=== PATIENT | male | born 1975 | race Two or more races ===

== ENCOUNTER 2020-01-24 15:37 | Inpatient (IN) | payer MEDICAID, OTHER ==
[~2020-01-24] VITALS: Ht 182.9 cm; Wt 96.5 kg
--- NOTE | 2020-01-24 16:23 | NUR ---
JESSICA. REPORT RECEIVED FROM EMS. PT WAS TRANSFFERED FROM [facility] IN [place]. PT HAD ABOUT 3CM LAC ON LEFT GROIN AREA 4 DAYS AGO. IT IS INFECTED. C/O LEFT TESTICLE PAIN/SWELLING/PUS FROM LAC. PT'S SKIN COLOR ON LEFT SIDED GROIN AND TESTICLE ARE BLACKISH AND UNPLEASANT ODOR FROM LAC. PT'S AOX4. RESPS EVEN AND UNLABORED. BP/SPO2 MONITORS IN PLACE. CALL LIGHT WITHIN REACH.
[2020-01-24] MEDS ORDERED: SODIUM CHLORIDE 0.9% 1,000 ML IV ONE (16:30)
[2020-01-24] MEDS ORDERED: SODIUM CHLORIDE FLUSH 10ML SYR IVF ONE (16:30)
--- NOTE | 2020-01-24 16:50 | NUR ---
PT IN CT AT THIS TIME.
[2020-01-24 16:59] LABS: MEAN CORPUSCULAR HEMOGLOBIN 30.7 pg (27.5-34.5); MEAN CORPUSCULAR HGB CONC 33.8 g/dL (33.2-36.2); MEAN CORPUSCULAR VOLUME 90.8 fL (81-97); MEAN PLATELET VOLUME 12.1 fL (7.4-10.4); PLATELET COUNT 289 x10^3/uL (130-400); RED BLOOD COUNT 4.66 x10^6/uL (4.38-5.82); RED CELL DISTRIBUTION WIDTH 13.4 % (9.4-14.8)
[2020-01-24 17:09] LABS: ALBUMIN 1.9 g/dL (3.4-5.0); ANION GAP 9 mmol/L (5-15); CALCIUM 8.4 mg/dL (8.5-10.1); CHLORIDE 94 mmol/L (98-107); CREATININE 1.03 mg/dL (0.7-1.3)
[2020-01-24 17:10] LABS: MD YES
[2020-01-24] MEDS ORDERED: OMNIPAQUE 350 MG/ML, 100ML BOTTLE ONE (17:15)
[2020-01-24] MEDS ORDERED: POTASSIUM CHLORIDE 40 MEQ in SODIUM CHLORIDE 0.9% 500 ML IV ONE (17:30)
--- NOTE | 2020-01-24 17:52 | NUR ---
PT BACK TO ROOM FROM CT AT THIS TIME.
--- NOTE | 2020-01-24 17:55 | NUR ---
NS INFUSING AT THIS TIME. PT TOLERATED WELL.
[2020-01-24] MEDS ORDERED: SODIUM CHLORIDE 0.9% 1,000ML IVBOLUS ONE (18:00)
[2020-01-24 18:07] LABS: BAND#(MANUAL) 5.69 x10^3/uL; BANDS%(MANUAL) 21 % (0-7); LYMPH#(MANUAL) 2.71 x10^3/uL (1-3.4); LYMPHS% (MANUAL) 10 % (22-44); METAMYELOCYTES# (MANUAL) 0.27 x10^3/uL (0-0); METAMYELOCYTES% (MANUAL) 1 % (0-1); MONOS#(MANUAL) 0.54 x10^3/uL (0.3-2.7); MONOS% (MANUAL) 2 % (2-9); MYELOCYTES# (MANUAL) 0.54 x10^3/uL (0-0); MYELOCYTES% (MANUAL) 2 % (0-0); REACTIVE LYMPHS # (MANUAL) 0.27 x10^3/uL (0-0); REACTIVE LYMPHS % (MANUAL) 1 % (0-0); SEG#(MANUAL) 17.07 x10^3/uL (1.8-6.8); SEGS% (MANUAL) 63 % (42-75)
[2020-01-24 18:11] LABS: <PLATELET ESTIMATE> ADEQUATE; <RBC MORPHOLOGY> NORMAL; LARGE PLATELETS 1+
[2020-01-24] MEDS ORDERED: ONDANSETRON 2MG/ML, 2ML IVPush PRN (18:30)
[2020-01-24] MEDS: NICOTINE 14MG/24 HR PATCH.TD24 TD SCH (18:30)
[2020-01-24] MEDS ORDERED: VANCOMYCIN PER PHARMACY MC PRN (18:30)
[2020-01-24] MEDS ORDERED: NS + 20MEQ KCL 1,000 ML IV SCH (18:30)
[2020-01-24] MEDS ORDERED: BISACODYL 10 MG SUPP PR PRN (18:30)
[2020-01-24] MEDS ORDERED: ACETAMINOPHEN 325 MG TABLET PO PRN ×2 (18:30→22:30)
--- NOTE | 2020-01-24 18:43 | NUR ---
REPORT GIVEN TO GUEST SERVICE REPRESENTATIVE. ALL QUESTIONS ANSWERED.
[2020-01-24] MEDS ORDERED: FENTANYL PF 250 MCG/5ML ONE ×3 (18:46→20:13)
[2020-01-24 18:57] LABS: HCT (SEDRATE) 42.3 % (39.2-51.8)
[2020-01-24 18:59] LABS: INTERNATIONAL NORMALIZED RATIO 0.99 (0.93-1.1); PROTHROMBIN TIME 10.5 Seconds (9.6-11.5)
[2020-01-24] MEDS ORDERED: MEPERIDINE/PF 25MG/ML,1ML IVPush PRN (19:00)
[2020-01-24] MEDS ORDERED: OXYcodone 5 MG/5 ML ORAL.SOL UDC PO PRN (19:00)
[2020-01-24] MEDS ORDERED: HALOPERIDOL 5 MG/ML IV PRN (19:00)
[2020-01-24] MEDS ORDERED: FENTANYL PF 100 MCG/2ML IV PRN (19:00)
[2020-01-24] MEDS ORDERED: LABETALOL 5MG/ML, 20ML IV PRN (19:00)
[2020-01-24] MEDS ORDERED: hydrALAzine 20 MG/ML, 1ML IV PRN (19:00)
[2020-01-24] MEDS ORDERED: HYDROmorphone 2 MG/ML, 1ML IVPush PRN (19:00)
[2020-01-24] MEDS ORDERED: PROMETHAZINE 25 MG/ML, 1ML IV PRN (19:00)
[2020-01-24] MEDS ORDERED: GLYCOPYRROLATE 0.2MG/1ML, 5ML ONE (20:40)
[2020-01-24] MEDS ORDERED: SUCCINYLCHOLINE 20 MG/ML, 10ML ONE (20:40)
[2020-01-24] MEDS ORDERED: NEOSTIGMINE 1 MG/ML, 10ML ONE (20:40)
[2020-01-24] MEDS ORDERED: CEFAZOLIN 1,000 MG ONE (20:40)
[2020-01-24] MEDS ORDERED: DEXAMETHASONE 4 MG/ML, 1ML ONE (20:40)
[2020-01-24] MEDS ORDERED: PROPOFOL 10 MG/ML, 20ML ONE (20:40)
[2020-01-24] MEDS ORDERED: ONDANSETRON 2MG/ML, 2ML ONE (20:40)
[2020-01-24] MEDS ORDERED: ROCURONIUM 10MG/ML,5ML ONE (20:40)
[2020-01-24] MEDS ORDERED: OXYcodone 5 MG/5 ML ORAL.SOL UDC ONE (21:24)
[2020-01-24] MEDS: FAMOTIDINE 20 MG/2 ML IVPush SCH (22:28)
[2020-01-24] MEDS: INSULIN LISPRO 100 UNITS/ML, PEN SQ-INSULIN SCH (22:28)
[2020-01-24] MEDS: HEPARIN 5,000 UNITS/ML, 1ML SQ SCH (22:29)
[2020-01-24] MEDS ORDERED: POTASSIUM CHLORIDE 20 MEQ in D5%-0.45% NACL 1,000 ML IV SCH (22:30)
[2020-01-24] MEDS ORDERED: PHARMACOKINETIC MONITORING MC PRN (22:30)
[2020-01-24] MEDS ORDERED: OXYcodone IR 5MG TABLET PO PRN (22:30)
[2020-01-24] MEDS ORDERED: HYDROmorphone 2 MG/ML, 1ML IV PRN (22:30)
[2020-01-24] MEDS ORDERED: PHARMACOKINETIC CONSULTATION MC ONE (22:30)
[2020-01-24] MEDS ORDERED: ENOXAPARIN 40 MG/0.4 ML SQ SCH (22:30)
[2020-01-24] MEDS: MEROPENEM 1 GM in SODIUM CHLORIDE 0.9% 100 ML IV SCH (22:39)
[2020-01-24] MEDS: CLINDAMYCIN PMX 600MG/50ML 50 ML IV SCH (22:39)
[2020-01-24 23:51] VITALS: BP 145/71
[2020-01-25] VITALS: BP 145/71
[2020-01-25] MEDS: VANCOMYCIN 1,800 MG in SODIUM CHLORIDE 0.9% 250 ML IV SCH ×3 (00:34→23:21)
[2020-01-25] MEDS: OXYcodone IR 5MG TABLET PO PRN (01:32)
[2020-01-25] MEDS ORDERED: PROMETHAZINE 25 MG/ML, 1ML IM PRN (02:00)
[2020-01-25 03:08] LABS: MICROSCOPIC INDICATED
[2020-01-25 04:59] LABS: MEAN CORPUSCULAR HEMOGLOBIN 31.2 pg (27.5-34.5); MEAN CORPUSCULAR HGB CONC 34.4 g/dL (33.2-36.2); MEAN CORPUSCULAR VOLUME 90.7 fL (81-97); MEAN PLATELET VOLUME 11.6 fL (7.4-10.4); PLATELET COUNT 272 x10^3/uL (130-400); RED BLOOD COUNT 4.09 x10^6/uL (4.38-5.82); RED CELL DISTRIBUTION WIDTH 13.7 % (9.4-14.8)
[2020-01-25 05:03] LABS: CHLORIDE 104 mmol/L (98-107)
[2020-01-25 05:11] LABS: ALANINE AMINOTRANSFERASE 17 U/L (12-78); ALBUMIN 1.6 g/dL (3.4-5.0); ALKALINE PHOSPHATASE 148 U/L (45-117); ANION GAP 8 mmol/L (5-15); BILIRUBIN,TOTAL 0.7 mg/dL (0.2-1.0); CALCIUM 7.6 mg/dL (8.5-10.1); CREATININE 0.77 mg/dL (0.7-1.3); TOTAL PROTEIN 6.9 g/dL (6.4-8.2)
[2020-01-25 05:35] LABS: MD YES
[2020-01-25] MEDS: NS + 20MEQ KCL 1,000 ML IV SCH ×3 (05:35→21:00)
[2020-01-25 05:37] LABS: <RBC MORPHOLOGY> NORMAL; BAND#(MANUAL) 2.86 x10^3/uL; BANDS%(MANUAL) 11 % (0-7); EOS#(MANUAL) 0.26 x10^3/uL (0.0-0.4); EOS% (MANUAL) 1 % (1-7); LYMPH#(MANUAL) 3.12 x10^3/uL (1-3.4); LYMPHS% (MANUAL) 12 % (22-44); METAMYELOCYTES# (MANUAL) 0.52 x10^3/uL (0-0); METAMYELOCYTES% (MANUAL) 2 % (0-1); MONOS#(MANUAL) 0.26 x10^3/uL (0.3-2.7); MONOS% (MANUAL) 1 % (2-9); MYELOCYTES# (MANUAL) 0.52 x10^3/uL (0-0); MYELOCYTES% (MANUAL) 2 % (0-0); SEG#(MANUAL) 18.46 x10^3/uL (1.8-6.8); SEGS% (MANUAL) 71 % (42-75)
[2020-01-25 05:38] LABS: <PLATELET ESTIMATE> ADEQUATE; LARGE PLATELETS 1+; TOXIC GRAN 1+
[2020-01-25] MEDS: MEROPENEM 1 GM in SODIUM CHLORIDE 0.9% 100 ML IV SCH ×3 (06:18→21:00)
[2020-01-25] MEDS: CLINDAMYCIN PMX 600MG/50ML 50 ML IV SCH ×3 (06:19→22:01)
[2020-01-25] MEDS: INSULIN LISPRO 100 UNITS/ML, PEN SQ-INSULIN SCH ×4 (06:22→21:00)
[2020-01-25] MEDS: HEPARIN 5,000 UNITS/ML, 1ML SQ SCH ×3 (07:19→22:30)
[2020-01-25] MEDS: DAKIN'S SOLUTION 1/4 STRENGTH 1,000 ML IRRIG SOLN EXT SCH (09:00)
[2020-01-25] MEDS: ACETAMINOPHEN 325 MG TABLET PO SCH ×3 (09:01→19:25)
[2020-01-25] MEDS: FAMOTIDINE 20 MG/2 ML IVPush SCH ×2 (09:01→20:59)
[2020-01-25] MEDS ORDERED: MIDAZOLAM 1 MG/ML, 2ML ONE (15:20)
[2020-01-25] MEDS ORDERED: FENTANYL PF 250 MCG/5ML ONE ×2 (15:20→16:23)
[2020-01-25] MEDS ORDERED: ONDANSETRON 2MG/ML, 2ML IV PRN (15:30)
[2020-01-25] MEDS ORDERED: LABETALOL 5MG/ML, 20ML IV PRN (15:30)
[2020-01-25] MEDS ORDERED: OXYcodone 5 MG/5 ML ORAL.SOL UDC PO PRN (15:30)
[2020-01-25] MEDS ORDERED: FENTANYL PF 100 MCG/2ML IV PRN (15:30)
[2020-01-25] MEDS ORDERED: HYDROmorphone 2 MG/ML, 1ML IVPush PRN (15:30)
[2020-01-25] MEDS ORDERED: MORPHINE SULFATE 4 MG/ML, 1ML IVPush PRN (15:30)
[2020-01-25] MEDS ORDERED: MEPERIDINE/PF 25MG/ML,1ML IVPush PRN (15:30)
[2020-01-25] MEDS ORDERED: hydrALAzine 20 MG/ML, 1ML IV PRN (15:30)
[2020-01-25] MEDS ORDERED: ROCURONIUM 10MG/ML,5ML ONE (16:23)
[2020-01-25] MEDS ORDERED: CEFAZOLIN 1,000 MG ONE (16:23)
[2020-01-25] MEDS ORDERED: NEOSTIGMINE 1 MG/ML, 10ML ONE (16:23)
[2020-01-25] MEDS ORDERED: PROPOFOL 10 MG/ML, 20ML ONE (16:23)
[2020-01-25] MEDS ORDERED: GLYCOPYRROLATE 0.2MG/1ML, 5ML ONE (16:23)
[2020-01-25] MEDS ORDERED: OXYcodone 5 MG/5 ML ORAL.SOL UDC ONE (17:16)
[2020-01-25] MEDS: NICOTINE 14MG/24 HR PATCH.TD24 TD SCH (18:30)
[2020-01-26] MEDS: ACETAMINOPHEN 325 MG TABLET PO SCH ×5 (02:19→23:56)
[2020-01-26 05:21] LABS: MEAN CORPUSCULAR HEMOGLOBIN 30.7 pg (27.5-34.5); MEAN CORPUSCULAR HGB CONC 33.7 g/dL (33.2-36.2); MEAN CORPUSCULAR VOLUME 91.3 fL (81-97); MEAN PLATELET VOLUME 12.1 fL (7.4-10.4); PLATELET COUNT 213 x10^3/uL (130-400); RED CELL DISTRIBUTION WIDTH 14.1 % (9.4-14.8)
[2020-01-26 05:36] LABS: CHLORIDE 103 mmol/L (98-107)
[2020-01-26 05:47] LABS: ALANINE AMINOTRANSFERASE 12 U/L (12-78); ALBUMIN 1.2 g/dL (3.4-5.0); ALKALINE PHOSPHATASE 110 U/L (45-117); ANION GAP 7 mmol/L (5-15); BILIRUBIN,TOTAL 0.7 mg/dL (0.2-1.0); CALCIUM 7.5 mg/dL (8.5-10.1); CREATININE 0.56 mg/dL (0.7-1.3); TOTAL PROTEIN 6.3 g/dL (6.4-8.2)
[2020-01-26 05:53] LABS: MD YES
[2020-01-26 05:59] LABS: <PLATELET ESTIMATE> ADEQUATE; <RBC MORPHOLOGY> NORMAL; BAND#(MANUAL) 0.23 x10^3/uL; BANDS%(MANUAL) 1 % (0-7); EOS#(MANUAL) 0.46 x10^3/uL (0.0-0.4); EOS% (MANUAL) 2 % (1-7); LYMPH#(MANUAL) 1.38 x10^3/uL (1-3.4); LYMPHS% (MANUAL) 6 % (22-44); METAMYELOCYTES# (MANUAL) 0.23 x10^3/uL (0-0); METAMYELOCYTES% (MANUAL) 1 % (0-1); MONOS#(MANUAL) 1.61 x10^3/uL (0.3-2.7); MONOS% (MANUAL) 7 % (2-9); MYELOCYTES# (MANUAL) 0.23 x10^3/uL (0-0); MYELOCYTES% (MANUAL) 1 % (0-0); SEG#(MANUAL) 18.86 x10^3/uL (1.8-6.8); SEGS% (MANUAL) 82 % (42-75); TOXIC GRAN 1+
[2020-01-26 06:00] LABS: LARGE PLATELETS 1+
[2020-01-26] MEDS: MEROPENEM 1 GM in SODIUM CHLORIDE 0.9% 100 ML IV SCH ×3 (06:30→22:27)
[2020-01-26] MEDS: HEPARIN 5,000 UNITS/ML, 1ML SQ SCH ×4 (06:30→23:57)
[2020-01-26] MEDS: INSULIN LISPRO 100 UNITS/ML, PEN SQ-INSULIN SCH ×4 (07:46→20:48)
[2020-01-26] MEDS: NS + 20MEQ KCL 1,000 ML IV SCH (07:46)
[2020-01-26] MEDS: FAMOTIDINE 20 MG/2 ML IVPush SCH ×2 (07:56→20:44)
[2020-01-26] MEDS: CLINDAMYCIN PMX 600MG/50ML 50 ML IV SCH (07:59)
[2020-01-26] MEDS: VANCOMYCIN 1,800 MG in SODIUM CHLORIDE 0.9% 250 ML IV SCH ×2 (12:00→23:44)
[2020-01-26] MEDS: DAKIN'S SOLUTION 1/4 STRENGTH 1,000 ML IRRIG SOLN EXT SCH (13:37)
[2020-01-26] MEDS ORDERED: POTASSIUM CHLORIDE 20 MEQ TAB.ER.PRT PO ONE (16:30)
[2020-01-26] MEDS: NICOTINE 14MG/24 HR PATCH.TD24 TD SCH (17:55)
[2020-01-26 19:53] VITALS: BP 122/74
[2020-01-26] MEDS: LACTOBACILLUS CHEW TABLET PO SCH (20:44)
[2020-01-27 02:06] VITALS: BP 116/69
[2020-01-27] MEDS: MEROPENEM 1 GM in SODIUM CHLORIDE 0.9% 100 ML IV SCH ×3 (06:18→22:27)
[2020-01-27] MEDS ORDERED: FENTANYL PF 250 MCG/5ML ONE ×3 (06:46→08:33)
[2020-01-27] MEDS ORDERED: MIDAZOLAM 1 MG/ML, 2ML ONE (06:47)
[2020-01-27 06:57] LABS: MEAN CORPUSCULAR HEMOGLOBIN 30.9 pg (27.5-34.5); MEAN CORPUSCULAR HGB CONC 33.9 g/dL (33.2-36.2); MEAN CORPUSCULAR VOLUME 91.3 fL (81-97); MEAN PLATELET VOLUME 11.1 fL (7.4-10.4); PLATELET COUNT 304 x10^3/uL (130-400); RED BLOOD COUNT 3.83 x10^6/uL (4.38-5.82); RED CELL DISTRIBUTION WIDTH 13.8 % (9.4-14.8)
[2020-01-27] MEDS ORDERED: MEPERIDINE/PF 25MG/ML,1ML IVPush PRN (07:00)
[2020-01-27] MEDS ORDERED: PROMETHAZINE 25 MG/ML, 1ML IV PRN (07:00)
[2020-01-27] MEDS: INSULIN LISPRO 100 UNITS/ML, PEN SQ-INSULIN SCH ×4 (07:00→20:53)
[2020-01-27] MEDS ORDERED: OXYcodone 5 MG/5 ML ORAL.SOL UDC PO PRN (07:00)
[2020-01-27] MEDS ORDERED: FENTANYL PF 100 MCG/2ML IV PRN (07:00)
[2020-01-27] MEDS ORDERED: hydrALAzine 20 MG/ML, 1ML IV PRN (07:00)
[2020-01-27] MEDS ORDERED: HALOPERIDOL 5 MG/ML IV PRN (07:00)
[2020-01-27] MEDS ORDERED: HYDROmorphone 2 MG/ML, 1ML IVPush PRN (07:00)
[2020-01-27] MEDS ORDERED: LABETALOL 5MG/ML, 20ML IV PRN (07:00)
[2020-01-27 07:06] LABS: ALANINE AMINOTRANSFERASE 11 U/L (12-78); ALBUMIN 1.1 g/dL (3.4-5.0); ANION GAP 8 mmol/L (5-15); CALCIUM 7.5 mg/dL (8.5-10.1); CHLORIDE 102 mmol/L (98-107); CREATININE 0.57 mg/dL (0.7-1.3)
[2020-01-27 07:08] LABS: ALKALINE PHOSPHATASE 111 U/L (45-117); BILIRUBIN,TOTAL 0.5 mg/dL (0.2-1.0); TOTAL PROTEIN 6.7 g/dL (6.4-8.2)
[2020-01-27] MEDS ORDERED: BUPIVACAINE/PF 0.5% ONE (07:53)
[2020-01-27] MEDS ORDERED: EPINEPHRINE 1 MG/ML, 1ML ONE (07:53)
[2020-01-27] MEDS: ACETAMINOPHEN 325 MG TABLET PO SCH ×3 (08:00→20:14)
[2020-01-27 08:37] LABS: MD YES
[2020-01-27 08:39] LABS: BAND#(MANUAL) 2.19 x10^3/uL; BANDS%(MANUAL) 10 % (0-7); LYMPH#(MANUAL) 1.31 x10^3/uL (1-3.4); LYMPHS% (MANUAL) 6 % (22-44); MONOS#(MANUAL) 0.66 x10^3/uL (0.3-2.7); MONOS% (MANUAL) 3 % (2-9); SEG#(MANUAL) 17.74 x10^3/uL (1.8-6.8); SEGS% (MANUAL) 81 % (42-75)
[2020-01-27 08:40] LABS: <PLATELET ESTIMATE> ADEQUATE; <RBC MORPHOLOGY> NORMAL; LARGE PLATELETS 1+; TOXIC GRAN 1+
[2020-01-27] MEDS ORDERED: SUCCINYLCHOLINE 20 MG/ML, 10ML ONE (08:48)
[2020-01-27] MEDS ORDERED: DEXAMETHASONE 4 MG/ML, 1ML ONE (08:48)
[2020-01-27] MEDS ORDERED: CEFAZOLIN 1,000 MG ONE (08:48)
[2020-01-27] MEDS ORDERED: ROCURONIUM 10MG/ML,5ML ONE (08:48)
[2020-01-27] MEDS ORDERED: NEOSTIGMINE 1 MG/ML, 10ML ONE (08:48)
[2020-01-27] MEDS ORDERED: PROPOFOL 10 MG/ML, 20ML ONE (08:48)
[2020-01-27] MEDS ORDERED: GLYCOPYRROLATE 0.2MG/1ML, 5ML ONE (08:48)
[2020-01-27] MEDS ORDERED: ONDANSETRON 2MG/ML, 2ML ONE (08:48)
[2020-01-27] MEDS: DAKIN'S SOLUTION 1/4 STRENGTH 1,000 ML IRRIG SOLN EXT SCH (09:00)
[2020-01-27] MEDS: LACTOBACILLUS CHEW TABLET PO SCH ×3 (10:49→20:52)
[2020-01-27] MEDS: FAMOTIDINE 20 MG/2 ML IVPush SCH ×2 (10:49→20:53)
[2020-01-27] MEDS: VANCOMYCIN 2,000 MG in SODIUM CHLORIDE 0.9% 500 ML IV SCH ×2 (11:03→23:09)
[2020-01-27 13:22] VITALS: BP 143/72
[2020-01-27] MEDS: HEPARIN 5,000 UNITS/ML, 1ML SQ SCH ×2 (14:37→22:28)
[2020-01-27] MEDS: NICOTINE 14MG/24 HR PATCH.TD24 TD SCH (16:16)
[2020-01-27 19:19] VITALS: BP 135/67
[2020-01-27] MEDS: OXYcodone IR 5MG TABLET PO PRN (21:52)
[2020-01-28 00:07] VITALS: BP 113/70
[2020-01-28 00:36] VITALS: BP 137/73
[2020-01-28] MEDS: ACETAMINOPHEN 325 MG TABLET PO SCH ×4 (02:13→20:08)
[2020-01-28 04:51] LABS: MEAN CORPUSCULAR HEMOGLOBIN 30.6 pg (27.5-34.5); MEAN CORPUSCULAR HGB CONC 33.7 g/dL (33.2-36.2); MEAN CORPUSCULAR VOLUME 90.7 fL (81-97); MEAN PLATELET VOLUME 10.9 fL (7.4-10.4); PLATELET COUNT 338 x10^3/uL (130-400); RED BLOOD COUNT 3.65 x10^6/uL (4.38-5.82); RED CELL DISTRIBUTION WIDTH 13.7 % (9.4-14.8)
[2020-01-28 04:54] VITALS: BP 132/77
[2020-01-28 05:01] LABS: ANION GAP 7 mmol/L (5-15); CALCIUM 7.2 mg/dL (8.5-10.1); CHLORIDE 100 mmol/L (98-107); CREATININE 0.63 mg/dL (0.7-1.3)
[2020-01-28 05:06] LABS: MD YES
[2020-01-28 05:07] LABS: ANISOCYTOSIS 1+; BAND#(MANUAL) 1.06 x10^3/uL; BANDS%(MANUAL) 5 % (0-7); LYMPHS% (MANUAL) 8 % (22-44); METAMYELOCYTES# (MANUAL) 0.21 x10^3/uL (0-0); METAMYELOCYTES% (MANUAL) 1 % (0-1); MONOS#(MANUAL) 0.64 x10^3/uL (0.3-2.7); MONOS% (MANUAL) 3 % (2-9); SEGS% (MANUAL) 83 % (42-75); TOXIC GRAN 1+
[2020-01-28 05:08] LABS: <PLATELET ESTIMATE> ADEQUATE; LARGE PLATELETS 1+
[2020-01-28] MEDS: MEROPENEM 1 GM in SODIUM CHLORIDE 0.9% 100 ML IV SCH ×3 (06:32→22:24)
[2020-01-28] MEDS: HEPARIN 5,000 UNITS/ML, 1ML SQ SCH ×3 (06:33→22:24)
[2020-01-28 06:46] VITALS: BP 141/77
[2020-01-28] MEDS: INSULIN LISPRO 100 UNITS/ML, PEN SQ-INSULIN SCH ×4 (07:49→21:07)
[2020-01-28] MEDS: OXYcodone IR 5MG TABLET PO PRN ×2 (08:17→19:36)
[2020-01-28] MEDS: LACTOBACILLUS CHEW TABLET PO SCH ×3 (08:17→21:04)
[2020-01-28] MEDS: DAKIN'S SOLUTION 1/4 STRENGTH 1,000 ML IRRIG SOLN EXT SCH (09:00)
[2020-01-28] MEDS: HYDROmorphone 2 MG/ML, 1ML IV PRN ×2 (10:09→10:27)
[2020-01-28] MEDS: VANCOMYCIN 2,000 MG in SODIUM CHLORIDE 0.9% 500 ML IV SCH ×2 (11:27→23:05)
[2020-01-28] MEDS: morphine SULFATE 10 MG/ML, 1ML IVPush PRN (11:27)
[2020-01-28 13:03] VITALS: BP 151/76
[2020-01-28] MEDS: NICOTINE 14MG/24 HR PATCH.TD24 TD SCH (16:01)
[2020-01-28] MEDS ORDERED: POTASSIUM CHLORIDE 20 MEQ TAB.ER.PRT PO ONE (18:00)
[2020-01-28 19:24] VITALS: BP 139/72
[2020-01-29] MEDS: ACETAMINOPHEN 325 MG TABLET PO SCH ×4 (01:54→19:58)
[2020-01-29 02:37] VITALS: BP 122/71
[2020-01-29] MEDS: OXYcodone IR 5MG TABLET PO PRN ×4 (04:28→21:03)
[2020-01-29 05:25] LABS: CHLORIDE 100 mmol/L (98-107)
[2020-01-29 05:28] LABS: ANION GAP 7 mmol/L (5-15); CALCIUM 7.2 mg/dL (8.5-10.1); CREATININE 0.52 mg/dL (0.7-1.3); MEAN CORPUSCULAR HEMOGLOBIN 30.3 pg (27.5-34.5); MEAN CORPUSCULAR HGB CONC 33.6 g/dL (33.2-36.2); MEAN CORPUSCULAR VOLUME 90.3 fL (81-97); MEAN PLATELET VOLUME 11.3 fL (7.4-10.4); PLATELET COUNT 360 x10^3/uL (130-400); RED BLOOD COUNT 3.69 x10^6/uL (4.38-5.82); RED CELL DISTRIBUTION WIDTH 13.4 % (9.4-14.8)
[2020-01-29 06:14] LABS: MD YES
[2020-01-29] MEDS: HEPARIN 5,000 UNITS/ML, 1ML SQ SCH ×3 (06:15→22:37)
[2020-01-29 06:16] LABS: <PLATELET ESTIMATE> ADEQUATE; ANISOCYTOSIS 1+; BAND#(MANUAL) 2.38 x10^3/uL; BANDS%(MANUAL) 11 % (0-7); LARGE PLATELETS 1+; LYMPH#(MANUAL) 1.08 x10^3/uL (1-3.4); LYMPHS% (MANUAL) 5 % (22-44); METAMYELOCYTES# (MANUAL) 0.86 x10^3/uL (0-0); METAMYELOCYTES% (MANUAL) 4 % (0-1); MONOS#(MANUAL) 1.08 x10^3/uL (0.3-2.7); MONOS% (MANUAL) 5 % (2-9); MYELOCYTES# (MANUAL) 0.43 x10^3/uL (0-0); MYELOCYTES% (MANUAL) 2 % (0-0); SEG#(MANUAL) 15.77 x10^3/uL (1.8-6.8); SEGS% (MANUAL) 73 % (42-75); TOXIC GRAN 1+
[2020-01-29 06:17] LABS: POLYCHROMASIA 1+
[2020-01-29 07:16] VITALS: BP 150/78
[2020-01-29] MEDS: INSULIN LISPRO 100 UNITS/ML, PEN SQ-INSULIN SCH ×4 (07:44→21:04)
[2020-01-29] MEDS: MEROPENEM 1 GM in SODIUM CHLORIDE 0.9% 100 ML IV SCH ×2 (07:44→15:24)
[2020-01-29] MEDS: LACTOBACILLUS CHEW TABLET PO SCH ×3 (08:37→20:58)
[2020-01-29] MEDS: DAKIN'S SOLUTION 1/4 STRENGTH 1,000 ML IRRIG SOLN EXT SCH (08:37)
[2020-01-29] MEDS ORDERED: POTASSIUM CHLORIDE 20 MEQ TAB.ER.PRT PO ONE (11:00)
[2020-01-29] MEDS: VANCOMYCIN 2,000 MG in SODIUM CHLORIDE 0.9% 500 ML IV SCH ×2 (11:29→23:02)
[2020-01-29 12:40] VITALS: BP 139/82
[2020-01-29] MEDS: NICOTINE 14MG/24 HR PATCH.TD24 TD SCH (17:01)
[2020-01-29 20:24] VITALS: BP 142/77
[2020-01-29] MEDS ORDERED: INSULIN GLARGINE 100 UNITS/ML, PEN SQ-INSULIN SCH (21:00)
[2020-01-30] MEDS: MEROPENEM 1 GM in SODIUM CHLORIDE 0.9% 100 ML IV SCH ×3 (01:20→17:28)
[2020-01-30] MEDS: ACETAMINOPHEN 325 MG TABLET PO SCH ×4 (01:20→20:34)
[2020-01-30 04:27] VITALS: BP 121/66
[2020-01-30 05:38] LABS: MEAN CORPUSCULAR HGB CONC 33.8 g/dL (33.2-36.2); MEAN CORPUSCULAR VOLUME 91.6 fL (81-97); PLATELET COUNT 407 x10^3/uL (130-400); RED BLOOD COUNT 3.47 x10^6/uL (4.38-5.82); RED CELL DISTRIBUTION WIDTH 13.4 % (9.4-14.8)
[2020-01-30 06:11] LABS: MD YES
[2020-01-30 06:12] LABS: ANISOCYTOSIS 1+; LYMPH#(MANUAL) 1.66 x10^3/uL (1-3.4); LYMPHS% (MANUAL) 8 % (22-44); SEG#(MANUAL) 19.04 x10^3/uL (1.8-6.8); SEGS% (MANUAL) 92 % (42-75)
[2020-01-30 06:13] LABS: <PLATELET ESTIMATE> INCREASED; LARGE PLATELETS 1+; POLYCHROMASIA 1+; TOXIC GRAN 1+
[2020-01-30] MEDS: HEPARIN 5,000 UNITS/ML, 1ML SQ SCH ×3 (06:13→22:31)
[2020-01-30] MEDS: INSULIN LISPRO 100 UNITS/ML, PEN SQ-INSULIN SCH ×4 (07:42→20:34)
[2020-01-30] MEDS: LACTOBACILLUS CHEW TABLET PO SCH ×3 (07:42→20:33)
[2020-01-30 08:10] VITALS: BP 122/76
[2020-01-30] MEDS: VANCOMYCIN 2,000 MG in SODIUM CHLORIDE 0.9% 500 ML IV SCH ×2 (11:53→23:49)
[2020-01-30 12:18] VITALS: BP 144/76
[2020-01-30] MEDS: DAKIN'S SOLUTION 1/4 STRENGTH 1,000 ML IRRIG SOLN EXT SCH (13:40)
[2020-01-30] MEDS: NICOTINE 14MG/24 HR PATCH.TD24 TD SCH (17:03)
[2020-01-30 20:01] VITALS: BP 139/73
[2020-01-30] MEDS ORDERED: INSULIN GLARGINE 100 UNITS/ML, PEN SQ-INSULIN SCH (21:00)
[2020-01-30] MEDS: OXYcodone IR 5MG TABLET PO PRN (22:33)
[2020-01-31] MEDS: MEROPENEM 1 GM in SODIUM CHLORIDE 0.9% 100 ML IV SCH ×2 (01:52→08:56)
[2020-01-31] MEDS: ACETAMINOPHEN 325 MG TABLET PO SCH ×4 (01:53→20:25)
[2020-01-31 02:42] VITALS: BP 134/73
[2020-01-31 05:09] LABS: MEAN CORPUSCULAR HEMOGLOBIN 30.7 pg (27.5-34.5); MEAN CORPUSCULAR HGB CONC 34.1 g/dL (33.2-36.2); MEAN CORPUSCULAR VOLUME 90.1 fL (81-97); MEAN PLATELET VOLUME 11.1 fL (7.4-10.4); PLATELET COUNT 419 x10^3/uL (130-400); RED BLOOD COUNT 3.54 x10^6/uL (4.38-5.82); RED CELL DISTRIBUTION WIDTH 13.9 % (9.4-14.8)
[2020-01-31 05:19] LABS: ANION GAP 6 mmol/L (5-15); CALCIUM 7.3 mg/dL (8.5-10.1); CHLORIDE 105 mmol/L (98-107); CREATININE 0.56 mg/dL (0.7-1.3)
[2020-01-31 05:51] LABS: BASOPHILS # (AUTO) 0.07 x10^3/uL (0-0.1); BASOPHILS % (AUTO) 0 % (0-1); EOSINOPHILS # (AUTO) 0.11 x10^3/uL (0-0.4); EOSINOPHILS % (AUTO) 1 % (1-7); LYMPHOCYTES # (AUTO) 2.11 x10^3/uL (1-3.4); LYMPHOCYTES % (AUTO) 12 % (22-44); MONOCYTES # (AUTO) 0.71 x10^3/uL (0.2-0.8); MONOCYTES % (AUTO) 4 % (2-9); NEUTROPHILS # (AUTO) 15.35 x10^3/uL (1.8-6.8); NEUTROPHILS % (AUTO) 84 % (42-75)
[2020-01-31 05:57] LABS: MD SCAN
[2020-01-31] MEDS: HEPARIN 5,000 UNITS/ML, 1ML SQ SCH ×3 (06:21→22:17)
[2020-01-31 06:55] VITALS: BP 143/80
[2020-01-31] MEDS: LACTOBACILLUS CHEW TABLET PO SCH ×3 (07:41→20:25)
[2020-01-31] MEDS: INSULIN LISPRO 100 UNITS/ML, PEN SQ-INSULIN SCH ×4 (07:41→20:25)
[2020-01-31] MEDS: DAKIN'S SOLUTION 1/4 STRENGTH 1,000 ML IRRIG SOLN EXT SCH (07:41)
[2020-01-31] MEDS ORDERED: POTASSIUM CHLORIDE 20 MEQ TAB.ER.PRT PO ONE (10:30)
[2020-01-31] MEDS: morphine SULFATE 10 MG/ML, 1ML IVPush PRN (10:55)
[2020-01-31] MEDS: VANCOMYCIN 2,000 MG in SODIUM CHLORIDE 0.9% 500 ML IV SCH (11:53)
[2020-01-31 14:56] VITALS: BP 144/77
[2020-01-31] MEDS: AMPICILLIN/SULBACTAM 3 GM in SODIUM CHLORIDE 0.9% 100 ML IV SCH ×2 (16:15→22:17)
[2020-01-31] MEDS: NICOTINE 14MG/24 HR PATCH.TD24 TD SCH (18:30)
[2020-01-31 19:00] VITALS: BP 137/77
[2020-01-31] MEDS: OXYcodone IR 5MG TABLET PO PRN (20:25)
[2020-01-31] MEDS ORDERED: INSULIN GLARGINE 100 UNITS/ML, PEN SQ-INSULIN SCH ×2 (21:00)
[2020-02-01 03:11] VITALS: BP 136/74
[2020-02-01] MEDS: AMPICILLIN/SULBACTAM 3 GM in SODIUM CHLORIDE 0.9% 100 ML IV SCH ×4 (03:55→22:17)
[2020-02-01] MEDS: ACETAMINOPHEN 325 MG TABLET PO SCH ×4 (03:55→21:08)
[2020-02-01] MEDS: HEPARIN 5,000 UNITS/ML, 1ML SQ SCH ×3 (06:04→22:18)
[2020-02-01 06:24] LABS: HCT (SEDRATE) 32.2 % (39.2-51.8)
[2020-02-01 06:36] LABS: ANION GAP 5 mmol/L (5-15); CALCIUM 7.7 mg/dL (8.5-10.1); CHLORIDE 104 mmol/L (98-107); CREATININE 0.62 mg/dL (0.7-1.3); MEAN CORPUSCULAR HEMOGLOBIN 30.5 pg (27.5-34.5); MEAN CORPUSCULAR HGB CONC 33.6 g/dL (33.2-36.2); MEAN CORPUSCULAR VOLUME 90.7 fL (81-97); MEAN PLATELET VOLUME 11.3 fL (7.4-10.4); PLATELET COUNT 502 x10^3/uL (130-400); RED BLOOD COUNT 3.55 x10^6/uL (4.38-5.82); RED CELL DISTRIBUTION WIDTH 13.9 % (9.4-14.8)
[2020-02-01 06:40] VITALS: BP 127/78
[2020-02-01 06:53] LABS: BASOPHILS # (AUTO) 0.25 x10^3/uL (0-0.1); BASOPHILS % (AUTO) 1 % (0-1); EOSINOPHILS # (AUTO) 0.21 x10^3/uL (0-0.4); EOSINOPHILS % (AUTO) 1 % (1-7); LYMPHOCYTES # (AUTO) 2.09 x10^3/uL (1-3.4); LYMPHOCYTES % (AUTO) 11 % (22-44); MD SCAN; MONOCYTES # (AUTO) 0.95 x10^3/uL (0.2-0.8); MONOCYTES % (AUTO) 5 % (2-9); NEUTROPHILS # (AUTO) 15.34 x10^3/uL (1.8-6.8); NEUTROPHILS % (AUTO) 81 % (42-75)
[2020-02-01 07:03] LABS: SEDIMENTATION RATE > 120 mm/hr (0-10)
[2020-02-01] MEDS: DAKIN'S SOLUTION 1/4 STRENGTH 1,000 ML IRRIG SOLN EXT SCH (07:53)
[2020-02-01] MEDS: LACTOBACILLUS CHEW TABLET PO SCH ×3 (07:53→21:08)
[2020-02-01] MEDS: INSULIN LISPRO 100 UNITS/ML, PEN SQ-INSULIN SCH ×4 (07:53→21:09)
[2020-02-01 14:40] VITALS: BP 134/82
[2020-02-01 19:38] VITALS: BP 159/80
[2020-02-01] MEDS ORDERED: INSULIN GLARGINE 100 UNITS/ML, PEN SQ-INSULIN SCH (21:00)
[2020-02-01] MEDS: OXYcodone IR 5MG TABLET PO PRN (21:08)
[2020-02-02 00:54] VITALS: BP 141/81
[2020-02-02] MEDS: AMPICILLIN/SULBACTAM 3 GM in SODIUM CHLORIDE 0.9% 100 ML IV SCH ×4 (04:00→22:14)
[2020-02-02] MEDS: ACETAMINOPHEN 325 MG TABLET PO SCH ×4 (04:00→20:16)
[2020-02-02] MEDS: HEPARIN 5,000 UNITS/ML, 1ML SQ SCH ×3 (06:02→22:15)
[2020-02-02 06:39] LABS: BASOPHILS # (AUTO) 0.06 x10^3/uL (0-0.1); BASOPHILS % (AUTO) 0 % (0-1); EOSINOPHILS # (AUTO) 0.21 x10^3/uL (0-0.4); EOSINOPHILS % (AUTO) 1 % (1-7); LYMPHOCYTES # (AUTO) 1.93 x10^3/uL (1-3.4); LYMPHOCYTES % (AUTO) 13 % (22-44); MD NO; MEAN CORPUSCULAR HEMOGLOBIN 30.8 pg (27.5-34.5); MEAN CORPUSCULAR HGB CONC 33.4 g/dL (33.2-36.2); MEAN CORPUSCULAR VOLUME 92.2 fL (81-97); MEAN PLATELET VOLUME 10.6 fL (7.4-10.4); MONOCYTES # (AUTO) 0.82 x10^3/uL (0.2-0.8); MONOCYTES % (AUTO) 5 % (2-9); NEUTROPHILS % (AUTO) 80 % (42-75); PLATELET COUNT 465 x10^3/uL (130-400); RED BLOOD COUNT 3.39 x10^6/uL (4.38-5.82); RED CELL DISTRIBUTION WIDTH 14.2 % (9.4-14.8)
[2020-02-02] MEDS: INSULIN LISPRO 100 UNITS/ML, PEN SQ-INSULIN SCH ×3 (07:00→22:57)
[2020-02-02] MEDS: DAKIN'S SOLUTION 1/4 STRENGTH 1,000 ML IRRIG SOLN EXT SCH (07:46)
[2020-02-02 08:20] VITALS: BP 120/69
[2020-02-02] MEDS: LACTOBACILLUS CHEW TABLET PO SCH ×3 (09:51→20:16)
[2020-02-02] MEDS: morphine SULFATE 10 MG/ML, 1ML IVPush PRN (10:16)
[2020-02-02 13:43] VITALS: BP 131/79
[2020-02-02] MEDS ORDERED: INSULIN LISPRO 100 UNITS/ML, PEN SQ-INSULIN SCH (16:00)
[2020-02-02 20:00] VITALS: BP 103/79
[2020-02-02] MEDS ORDERED: INSULIN GLARGINE 100 UNITS/ML, PEN SQ-INSULIN SCH (21:00)
[2020-02-03] MEDS: ACETAMINOPHEN 325 MG TABLET PO SCH ×4 (01:55→21:30)
[2020-02-03 01:56] VITALS: BP 128/68
[2020-02-03] MEDS: AMPICILLIN/SULBACTAM 3 GM in SODIUM CHLORIDE 0.9% 100 ML IV SCH ×4 (04:08→22:29)
[2020-02-03] MEDS: HEPARIN 5,000 UNITS/ML, 1ML SQ SCH ×3 (06:40→22:30)
[2020-02-03 07:20] VITALS: BP 136/77
[2020-02-03] MEDS: OXYcodone IR 5MG TABLET PO PRN ×3 (07:51→21:30)
[2020-02-03] MEDS: LACTOBACILLUS CHEW TABLET PO SCH ×3 (07:51→21:30)
[2020-02-03] MEDS: INSULIN LISPRO 100 UNITS/ML, PEN SQ-INSULIN SCH ×4 (07:56→21:00)
[2020-02-03] MEDS: DAKIN'S SOLUTION 1/4 STRENGTH 1,000 ML IRRIG SOLN EXT SCH (09:00)
[2020-02-03 13:10] VITALS: BP 132/69
[2020-02-03 18:46] VITALS: BP 132/71
[2020-02-03] MEDS: INSULIN GLARGINE 100 UNITS/ML, PEN SQ-INSULIN SCH (21:31)
[2020-02-04 00:55] VITALS: BP 143/72
[2020-02-04] MEDS: ACETAMINOPHEN 325 MG TABLET PO SCH ×4 (01:21→22:40)
[2020-02-04] MEDS: AMPICILLIN/SULBACTAM 3 GM in SODIUM CHLORIDE 0.9% 100 ML IV SCH ×4 (04:00→22:00)
[2020-02-04 04:45] LABS: CHOL/HDL RATIO 4.9; LDL/HDL RATIO 2.6 (0.5-3.0)
[2020-02-04 04:46] LABS: BASOPHILS # (AUTO) 0.06 x10^3/uL (0-0.1); BASOPHILS % (AUTO) 1 % (0-1); EOSINOPHILS # (AUTO) 0.13 x10^3/uL (0-0.4); EOSINOPHILS % (AUTO) 1 % (1-7); LYMPHOCYTES # (AUTO) 2.01 x10^3/uL (1-3.4); LYMPHOCYTES % (AUTO) 17 % (22-44); MD NO; MEAN CORPUSCULAR HEMOGLOBIN 30.9 pg (27.5-34.5); MEAN CORPUSCULAR HGB CONC 33.2 g/dL (33.2-36.2); MONOCYTES # (AUTO) 0.77 x10^3/uL (0.2-0.8); MONOCYTES % (AUTO) 6 % (2-9); NEUTROPHILS % (AUTO) 76 % (42-75); PLATELET COUNT 492 x10^3/uL (130-400); RED CELL DISTRIBUTION WIDTH 14.3 % (9.4-14.8)
[2020-02-04] MEDS: HEPARIN 5,000 UNITS/ML, 1ML SQ SCH ×3 (06:29→22:40)
[2020-02-04] MEDS: INSULIN LISPRO 100 UNITS/ML, PEN SQ-INSULIN SCH (06:30)
[2020-02-04 07:17] VITALS: BP 137/79
[2020-02-04] MEDS: LACTOBACILLUS CHEW TABLET PO SCH ×3 (08:23→22:40)
[2020-02-04] MEDS: DAKIN'S SOLUTION 1/4 STRENGTH 1,000 ML IRRIG SOLN EXT SCH (08:25)
[2020-02-04] MEDS: morphine SULFATE 10 MG/ML, 1ML IVPush PRN (10:29)
[2020-02-04 13:46] VITALS: BP 147/64
[2020-02-04] MEDS ORDERED: INSULIN LISPRO 100 UNITS/ML, PEN SQ-INSULIN SCH ×2 (16:00→17:00)
[2020-02-04] MEDS ORDERED: INSULIN LISPRO 100 UNITS/ML, PEN SQ-INSULIN ONE (17:05)
[2020-02-04 18:23] VITALS: BP 129/73
[2020-02-04] MEDS: OXYcodone IR 5MG TABLET PO PRN (22:40)
[2020-02-04] MEDS: INSULIN GLARGINE 100 UNITS/ML, PEN SQ-INSULIN SCH (22:41)
[2020-02-05 01:00] VITALS: BP 129/65
[2020-02-05] MEDS: ACETAMINOPHEN 325 MG TABLET PO SCH ×4 (02:00→20:15)
[2020-02-05] MEDS: AMPICILLIN/SULBACTAM 3 GM in SODIUM CHLORIDE 0.9% 100 ML IV SCH ×4 (04:09→22:33)
[2020-02-05] MEDS: HEPARIN 5,000 UNITS/ML, 1ML SQ SCH ×3 (06:08→22:33)
[2020-02-05] MEDS ORDERED: INSULIN LISPRO 100 UNITS/ML, PEN SQ-INSULIN SCH (07:00)
[2020-02-05 08:34] VITALS: BP 128/74
[2020-02-05] MEDS: LACTOBACILLUS CHEW TABLET PO SCH ×3 (08:46→20:15)
[2020-02-05] MEDS: DAKIN'S SOLUTION 1/4 STRENGTH 1,000 ML IRRIG SOLN EXT SCH (09:00)
[2020-02-05] MEDS: INSULIN LISPRO 100 UNITS/ML, PEN SQ-INSULIN SCH ×2 (11:50→17:21)
[2020-02-05 13:48] VITALS: BP 120/70
[2020-02-05 20:00] VITALS: BP 135/75
[2020-02-05] MEDS: INSULIN GLARGINE 100 UNITS/ML, PEN SQ-INSULIN SCH (20:15)
[2020-02-06] MEDS: ACETAMINOPHEN 325 MG TABLET PO SCH ×4 (01:57→20:52)
[2020-02-06 02:10] VITALS: BP 126/70
[2020-02-06] MEDS: AMPICILLIN/SULBACTAM 3 GM in SODIUM CHLORIDE 0.9% 100 ML IV SCH ×4 (04:00→22:29)
[2020-02-06] MEDS: HEPARIN 5,000 UNITS/ML, 1ML SQ SCH ×3 (06:23→22:30)
[2020-02-06 06:38] LABS: BASOPHILS # (AUTO) 0.12 x10^3/uL (0-0.1); BASOPHILS % (AUTO) 1 % (0-1); EOSINOPHILS # (AUTO) 0.28 x10^3/uL (0-0.4); EOSINOPHILS % (AUTO) 3 % (1-7); LYMPHOCYTES # (AUTO) 1.87 x10^3/uL (1-3.4); LYMPHOCYTES % (AUTO) 19 % (22-44); MD NO; MEAN CORPUSCULAR HEMOGLOBIN 31.1 pg (27.5-34.5); MEAN CORPUSCULAR HGB CONC 33.7 g/dL (33.2-36.2); MEAN CORPUSCULAR VOLUME 92.3 fL (81-97); MEAN PLATELET VOLUME 9.8 fL (7.4-10.4); MONOCYTES # (AUTO) 0.72 x10^3/uL (0.2-0.8); MONOCYTES % (AUTO) 7 % (2-9); NEUTROPHILS # (AUTO) 7.09 x10^3/uL (1.8-6.8); NEUTROPHILS % (AUTO) 70 % (42-75); PLATELET COUNT 469 x10^3/uL (130-400); RED BLOOD COUNT 3.55 x10^6/uL (4.38-5.82); RED CELL DISTRIBUTION WIDTH 14.6 % (9.4-14.8)
[2020-02-06 06:51] LABS: ANION GAP 6 mmol/L (5-15); CALCIUM 8.6 mg/dL (8.5-10.1); CHLORIDE 108 mmol/L (98-107); CREATININE 0.59 mg/dL (0.7-1.3)
[2020-02-06] MEDS: LACTOBACILLUS CHEW TABLET PO SCH ×3 (07:35→20:51)
[2020-02-06] MEDS: INSULIN LISPRO 100 UNITS/ML, PEN SQ-INSULIN SCH ×3 (07:35→16:40)
[2020-02-06 08:00] VITALS: BP 125/70
[2020-02-06] MEDS: DAKIN'S SOLUTION 1/4 STRENGTH 1,000 ML IRRIG SOLN EXT SCH (09:00)
[2020-02-06] MEDS ORDERED: morphine SULFATE 10 MG/ML, 1ML IVPush PRN (09:30)
[2020-02-06 14:02] VITALS: BP 131/72
[2020-02-06 18:29] VITALS: BP 116/70
[2020-02-06] MEDS: INSULIN GLARGINE 100 UNITS/ML, PEN SQ-INSULIN SCH (20:52)
[2020-02-07 01:21] VITALS: BP 117/69
[2020-02-07] MEDS: AMPICILLIN/SULBACTAM 3 GM in SODIUM CHLORIDE 0.9% 100 ML IV SCH ×4 (03:37→22:13)
[2020-02-07] MEDS: ACETAMINOPHEN 325 MG TABLET PO SCH ×4 (03:37→21:41)
[2020-02-07 04:30] LABS: BASOPHILS % (AUTO) 1 % (0-1); EOSINOPHILS % (AUTO) 2 % (1-7); LYMPHOCYTES # (AUTO) 2.15 x10^3/uL (1-3.4); LYMPHOCYTES % (AUTO) 21 % (22-44); MD NO; MEAN CORPUSCULAR HEMOGLOBIN 31.3 pg (27.5-34.5); MEAN CORPUSCULAR HGB CONC 33.8 g/dL (33.2-36.2); MEAN CORPUSCULAR VOLUME 92.6 fL (81-97); MEAN PLATELET VOLUME 9.6 fL (7.4-10.4); MONOCYTES # (AUTO) 0.75 x10^3/uL (0.2-0.8); MONOCYTES % (AUTO) 7 % (2-9); NEUTROPHILS # (AUTO) 7.05 x10^3/uL (1.8-6.8); NEUTROPHILS % (AUTO) 69 % (42-75); PLATELET COUNT 445 x10^3/uL (130-400); RED BLOOD COUNT 3.56 x10^6/uL (4.38-5.82); RED CELL DISTRIBUTION WIDTH 14.9 % (9.4-14.8)
[2020-02-07 04:40] LABS: ALBUMIN 1.8 g/dL (3.4-5.0); ANION GAP 6 mmol/L (5-15); CALCIUM 8.5 mg/dL (8.5-10.1); CHLORIDE 107 mmol/L (98-107)
[2020-02-07 04:48] LABS: % IRON SATURATION 32 % (20-55); ALANINE AMINOTRANSFERASE 21 U/L (12-78); ALKALINE PHOSPHATASE 101 U/L (45-117); BILIRUBIN,TOTAL 0.3 mg/dL (0.2-1.0); CREATININE 0.63 mg/dL (0.7-1.3); IRON LEVEL 65 mcg/dL (65-175); TOTAL IRON BINDING CAPACITY 202 mcg/dL (250-450); TOTAL PROTEIN 7.4 g/dL (6.4-8.2)
[2020-02-07] MEDS: HEPARIN 5,000 UNITS/ML, 1ML SQ SCH ×3 (06:36→22:13)
[2020-02-07 06:52] VITALS: BP 120/77
[2020-02-07] MEDS: INSULIN LISPRO 100 UNITS/ML, PEN SQ-INSULIN SCH ×3 (07:00→16:09)
[2020-02-07] MEDS: LACTOBACILLUS CHEW TABLET PO SCH ×3 (08:06→21:41)
[2020-02-07] MEDS: DAKIN'S SOLUTION 1/4 STRENGTH 1,000 ML IRRIG SOLN EXT SCH (08:06)
[2020-02-07 14:35] VITALS: BP 128/81
[2020-02-07 18:40] VITALS: BP 115/72
[2020-02-07] MEDS: INSULIN GLARGINE 100 UNITS/ML, PEN SQ-INSULIN SCH (21:59)
[2020-02-08] MEDS: ACETAMINOPHEN 325 MG TABLET PO SCH ×4 (02:19→21:53)
[2020-02-08 02:39] VITALS: BP 120/72
[2020-02-08] MEDS: AMPICILLIN/SULBACTAM 3 GM in SODIUM CHLORIDE 0.9% 100 ML IV SCH ×4 (04:14→21:54)
[2020-02-08] MEDS: HEPARIN 5,000 UNITS/ML, 1ML SQ SCH ×3 (06:35→22:05)
[2020-02-08 08:37] VITALS: BP 119/74
[2020-02-08] MEDS: DAKIN'S SOLUTION 1/4 STRENGTH 1,000 ML IRRIG SOLN EXT SCH (09:00)
[2020-02-08] MEDS: LACTOBACILLUS CHEW TABLET PO SCH ×3 (09:07→21:53)
[2020-02-08] MEDS: INSULIN LISPRO 100 UNITS/ML, PEN SQ-INSULIN SCH ×3 (10:35→21:56)
[2020-02-08 12:33] VITALS: BP 125/78
[2020-02-08 18:01] VITALS: BP 126/80
[2020-02-08] MEDS: INSULIN GLARGINE 100 UNITS/ML, PEN SQ-INSULIN SCH (21:57)
[2020-02-09] VITALS (14 sets, daily range): BP systolic 84–136; BP diastolic 50–70
[2020-02-09] MEDS: ACETAMINOPHEN 325 MG TABLET PO SCH ×4 (02:18→20:49)
[2020-02-09] MEDS: AMPICILLIN/SULBACTAM 3 GM in SODIUM CHLORIDE 0.9% 100 ML IV SCH ×4 (04:14→22:03)
[2020-02-09] MEDS: HEPARIN 5,000 UNITS/ML, 1ML SQ SCH ×3 (06:25→22:26)
[2020-02-09] MEDS: INSULIN LISPRO 100 UNITS/ML, PEN SQ-INSULIN SCH ×4 (06:56→20:53)
[2020-02-09] MEDS: LACTOBACILLUS CHEW TABLET PO SCH ×3 (07:40→20:49)
[2020-02-09] MEDS: DAKIN'S SOLUTION 1/4 STRENGTH 1,000 ML IRRIG SOLN EXT SCH (07:40)
[2020-02-09] MEDS: morphine SULFATE 10 MG/ML, 1ML IVPush PRN (10:01)
--- NOTE | 2020-02-09 15:43 | NUR ---
MAHESH RAMEY - Fall Risk Medication(s) present and receiving anticoagulants. Signed: 02/09/20 at 1544 by Wilfredo FIGUEREDO
[2020-02-09] MEDS: SODIUM CHLORIDE 0.9% 1,000 ML IV SCH (16:26)
[2020-02-09] MEDS: INSULIN GLARGINE 100 UNITS/ML, PEN SQ-INSULIN SCH (20:55)
[2020-02-10] VITALS (10 sets, daily range): BP systolic 105–125; BP diastolic 61–73
[2020-02-10] MEDS: ACETAMINOPHEN 325 MG TABLET PO SCH ×4 (01:49→20:36)
[2020-02-10] MEDS: AMPICILLIN/SULBACTAM 3 GM in SODIUM CHLORIDE 0.9% 100 ML IV SCH ×4 (04:05→21:50)
[2020-02-10] MEDS: HEPARIN 5,000 UNITS/ML, 1ML SQ SCH ×3 (06:33→21:50)
[2020-02-10] MEDS: INSULIN LISPRO 100 UNITS/ML, PEN SQ-INSULIN SCH ×4 (06:35→20:37)
[2020-02-10] MEDS: DAKIN'S SOLUTION 1/4 STRENGTH 1,000 ML IRRIG SOLN EXT SCH (09:00)
[2020-02-10] MEDS: LACTOBACILLUS CHEW TABLET PO SCH ×3 (09:56→20:36)
[2020-02-10] MEDS: SODIUM CHLORIDE 0.9% 1,000 ML IV SCH (11:42)
[2020-02-10] MEDS: INSULIN GLARGINE 100 UNITS/ML, PEN SQ-INSULIN SCH (20:36)
[2020-02-11 00:12] VITALS: BP 116/66
[2020-02-11] MEDS: SODIUM CHLORIDE 0.9% 1,000 ML IV SCH ×2 (02:07→13:49)
[2020-02-11] MEDS: ACETAMINOPHEN 325 MG TABLET PO SCH ×4 (02:07→20:29)
[2020-02-11] MEDS: AMPICILLIN/SULBACTAM 3 GM in SODIUM CHLORIDE 0.9% 100 ML IV SCH ×4 (03:42→22:13)
[2020-02-11 05:18] LABS: ANION GAP 6 mmol/L (5-15); CALCIUM 8.3 mg/dL (8.5-10.1); CHLORIDE 110 mmol/L (98-107)
[2020-02-11 05:19] LABS: BASOPHILS # (AUTO) 0.09 x10^3/uL (0-0.1); BASOPHILS % (AUTO) 1 % (0-1); CREATININE 0.66 mg/dL (0.7-1.3); EOSINOPHILS # (AUTO) 0.36 x10^3/uL (0-0.4); EOSINOPHILS % (AUTO) 4 % (1-7); LYMPHOCYTES # (AUTO) 2.19 x10^3/uL (1-3.4); LYMPHOCYTES % (AUTO) 26 % (22-44); MD NO; MEAN CORPUSCULAR HEMOGLOBIN 31.5 pg (27.5-34.5); MEAN CORPUSCULAR HGB CONC 33.7 g/dL (33.2-36.2); MEAN CORPUSCULAR VOLUME 93.3 fL (81-97); MEAN PLATELET VOLUME 9.9 fL (7.4-10.4); MONOCYTES # (AUTO) 0.72 x10^3/uL (0.2-0.8); MONOCYTES % (AUTO) 9 % (2-9); NEUTROPHILS # (AUTO) 4.97 x10^3/uL (1.8-6.8); NEUTROPHILS % (AUTO) 60 % (42-75); PLATELET COUNT 313 x10^3/uL (130-400); RED BLOOD COUNT 3.55 x10^6/uL (4.38-5.82); RED CELL DISTRIBUTION WIDTH 15.5 % (9.4-14.8)
[2020-02-11] MEDS: INSULIN LISPRO 100 UNITS/ML, PEN SQ-INSULIN SCH ×4 (06:32→20:29)
[2020-02-11] MEDS: HEPARIN 5,000 UNITS/ML, 1ML SQ SCH ×3 (06:46→22:13)
[2020-02-11 06:50] VITALS: BP 110/68
[2020-02-11] MEDS: LACTOBACILLUS CHEW TABLET PO SCH ×3 (07:51→20:30)
[2020-02-11] MEDS: DAKIN'S SOLUTION 1/4 STRENGTH 1,000 ML IRRIG SOLN EXT SCH (09:00)
[2020-02-11] MEDS: morphine SULFATE 10 MG/ML, 1ML IVPush PRN (09:35)
[2020-02-11 12:38] VITALS: BP 124/69
[2020-02-11 18:21] VITALS: BP 127/69
[2020-02-11] MEDS: INSULIN GLARGINE 100 UNITS/ML, PEN SQ-INSULIN SCH (20:29)
[2020-02-12] MEDS: ACETAMINOPHEN 325 MG TABLET PO SCH ×4 (01:39→21:03)
[2020-02-12 03:38] VITALS: BP 131/73
[2020-02-12] MEDS: SODIUM CHLORIDE 0.9% 1,000 ML IV SCH (03:39)
[2020-02-12] MEDS: AMPICILLIN/SULBACTAM 3 GM in SODIUM CHLORIDE 0.9% 100 ML IV SCH ×4 (03:39→22:05)
[2020-02-12] MEDS: HEPARIN 5,000 UNITS/ML, 1ML SQ SCH ×3 (05:58→22:05)
[2020-02-12] MEDS: INSULIN LISPRO 100 UNITS/ML, PEN SQ-INSULIN SCH ×4 (06:02→21:18)
[2020-02-12 06:31] VITALS: BP 126/69
[2020-02-12] MEDS: LACTOBACILLUS CHEW TABLET PO SCH ×3 (08:20→21:02)
[2020-02-12] MEDS: DAKIN'S SOLUTION 1/4 STRENGTH 1,000 ML IRRIG SOLN EXT SCH (09:00)
[2020-02-12 12:44] VITALS: BP 132/69
[2020-02-12] MEDS: MULTIVITAMIN 1 TABLET PO SCH (15:11)
[2020-02-12 19:55] VITALS: BP 116/61
[2020-02-12] MEDS: INSULIN GLARGINE 100 UNITS/ML, PEN SQ-INSULIN SCH (21:17)
[2020-02-13 01:06] VITALS: BP 119/61
[2020-02-13] MEDS: AMPICILLIN/SULBACTAM 3 GM in SODIUM CHLORIDE 0.9% 100 ML IV SCH ×4 (03:54→21:54)
[2020-02-13] MEDS: ACETAMINOPHEN 325 MG TABLET PO SCH ×4 (03:54→21:51)
[2020-02-13 04:18] LABS: BASOPHILS # (AUTO) 0.06 x10^3/uL (0-0.1); BASOPHILS % (AUTO) 1 % (0-1); EOSINOPHILS # (AUTO) 0.52 x10^3/uL (0-0.4); EOSINOPHILS % (AUTO) 6 % (1-7); LYMPHOCYTES # (AUTO) 1.87 x10^3/uL (1-3.4); LYMPHOCYTES % (AUTO) 22 % (22-44); MD NO; MEAN CORPUSCULAR HEMOGLOBIN 31.7 pg (27.5-34.5); MEAN CORPUSCULAR HGB CONC 33.9 g/dL (33.2-36.2); MEAN CORPUSCULAR VOLUME 93.4 fL (81-97); MONOCYTES # (AUTO) 0.69 x10^3/uL (0.2-0.8); MONOCYTES % (AUTO) 8 % (2-9); NEUTROPHILS # (AUTO) 5.51 x10^3/uL (1.8-6.8); NEUTROPHILS % (AUTO) 64 % (42-75); PLATELET COUNT 303 x10^3/uL (130-400); RED BLOOD COUNT 3.73 x10^6/uL (4.38-5.82); RED CELL DISTRIBUTION WIDTH 15.3 % (9.4-14.8)
[2020-02-13 04:30] LABS: ANION GAP 6 mmol/L (5-15); CALCIUM 8.5 mg/dL (8.5-10.1); CHLORIDE 109 mmol/L (98-107)
[2020-02-13] MEDS: HEPARIN 5,000 UNITS/ML, 1ML SQ SCH ×3 (06:20→21:54)
[2020-02-13] MEDS: INSULIN LISPRO 100 UNITS/ML, PEN SQ-INSULIN SCH ×4 (06:23→21:55)
[2020-02-13 07:44] VITALS: BP 113/69
[2020-02-13] MEDS: DAKIN'S SOLUTION 1/4 STRENGTH 1,000 ML IRRIG SOLN EXT SCH (08:37)
[2020-02-13] MEDS: MULTIVITAMIN 1 TABLET PO SCH (09:01)
[2020-02-13] MEDS: LACTOBACILLUS CHEW TABLET PO SCH ×3 (09:01→21:48)
[2020-02-13 14:21] VITALS: BP 123/71
[2020-02-13 18:48] VITALS: BP 110/64
[2020-02-13] MEDS: INSULIN GLARGINE 100 UNITS/ML, PEN SQ-INSULIN SCH (21:56)
[2020-02-14 01:25] VITALS: BP 95/61
[2020-02-14] MEDS: ACETAMINOPHEN 325 MG TABLET PO SCH ×4 (04:01→22:23)
[2020-02-14] MEDS: AMPICILLIN/SULBACTAM 3 GM in SODIUM CHLORIDE 0.9% 100 ML IV SCH ×4 (04:02→22:23)
[2020-02-14 04:47] LABS: BASOPHILS # (AUTO) 0.03 x10^3/uL (0-0.1); BASOPHILS % (AUTO) 0 % (0-1); EOSINOPHILS # (AUTO) 0.52 x10^3/uL (0-0.4); EOSINOPHILS % (AUTO) 5 % (1-7); HCT (SEDRATE) 37.1 % (39.2-51.8); LYMPHOCYTES # (AUTO) 2.06 x10^3/uL (1-3.4); LYMPHOCYTES % (AUTO) 21 % (22-44); MD NO; MEAN CORPUSCULAR HEMOGLOBIN 31.6 pg (27.5-34.5); MEAN CORPUSCULAR HGB CONC 33.8 g/dL (33.2-36.2); MEAN CORPUSCULAR VOLUME 93.5 fL (81-97); MONOCYTES # (AUTO) 0.72 x10^3/uL (0.2-0.8); MONOCYTES % (AUTO) 7 % (2-9); NEUTROPHILS # (AUTO) 6.71 x10^3/uL (1.8-6.8); NEUTROPHILS % (AUTO) 67 % (42-75); PLATELET COUNT 299 x10^3/uL (130-400); RED BLOOD COUNT 3.92 x10^6/uL (4.38-5.82); RED CELL DISTRIBUTION WIDTH 15.9 % (9.4-14.8)
[2020-02-14 05:00] LABS: ALANINE AMINOTRANSFERASE 22 U/L (12-78); ALBUMIN 2.1 g/dL (3.4-5.0); ANION GAP 5 mmol/L (5-15); CHLORIDE 110 mmol/L (98-107); CREATININE 0.71 mg/dL (0.7-1.3)
[2020-02-14 05:07] LABS: ALKALINE PHOSPHATASE 87 U/L (45-117); BILIRUBIN,TOTAL 0.3 mg/dL (0.2-1.0); TOTAL PROTEIN 7.6 g/dL (6.4-8.2)
[2020-02-14 06:30] VITALS: BP 105/62
[2020-02-14] MEDS: HEPARIN 5,000 UNITS/ML, 1ML SQ SCH ×3 (06:35→22:23)
[2020-02-14] MEDS: INSULIN LISPRO 100 UNITS/ML, PEN SQ-INSULIN SCH ×4 (07:00→22:25)
[2020-02-14] MEDS: DAKIN'S SOLUTION 1/4 STRENGTH 1,000 ML IRRIG SOLN EXT SCH (08:42)
[2020-02-14] MEDS: MULTIVITAMIN 1 TABLET PO SCH (09:20)
[2020-02-14] MEDS: LACTOBACILLUS CHEW TABLET PO SCH ×3 (09:20→22:24)
[2020-02-14] MEDS: morphine SULFATE 10 MG/ML, 1ML IVPush PRN (13:31)
[2020-02-14 14:42] VITALS: BP 118/67
[2020-02-14 18:31] VITALS: BP 110/67
[2020-02-14] MEDS: OXYcodone IR 5MG TABLET PO PRN (22:24)
[2020-02-14] MEDS: INSULIN GLARGINE 100 UNITS/ML, PEN SQ-INSULIN SCH (22:25)
[2020-02-15 02:52] VITALS: BP 110/65
[2020-02-15] MEDS: ACETAMINOPHEN 325 MG TABLET PO SCH ×4 (04:15→22:04)
[2020-02-15] MEDS: AMPICILLIN/SULBACTAM 3 GM in SODIUM CHLORIDE 0.9% 100 ML IV SCH ×4 (04:15→22:03)
[2020-02-15 06:26] VITALS: BP 108/67
[2020-02-15] MEDS: HEPARIN 5,000 UNITS/ML, 1ML SQ SCH ×3 (06:30→22:04)
[2020-02-15] MEDS: INSULIN LISPRO 100 UNITS/ML, PEN SQ-INSULIN SCH ×4 (06:34→22:05)
[2020-02-15] MEDS: MULTIVITAMIN 1 TABLET PO SCH (09:09)
[2020-02-15] MEDS: LACTOBACILLUS CHEW TABLET PO SCH ×3 (09:09→22:04)
[2020-02-15 14:30] VITALS: BP 113/59
[2020-02-15 18:56] VITALS: BP 112/66
[2020-02-15] MEDS: OXYcodone IR 5MG TABLET PO PRN (22:04)
[2020-02-15] MEDS: INSULIN GLARGINE 100 UNITS/ML, PEN SQ-INSULIN SCH (22:06)
[2020-02-16 03:51] VITALS: BP 105/66
[2020-02-16] MEDS: AMPICILLIN/SULBACTAM 3 GM in SODIUM CHLORIDE 0.9% 100 ML IV SCH ×4 (03:51→21:51)
[2020-02-16] MEDS: ACETAMINOPHEN 325 MG TABLET PO SCH ×4 (03:51→21:52)
[2020-02-16] MEDS: INSULIN LISPRO 100 UNITS/ML, PEN SQ-INSULIN SCH ×4 (06:30→21:52)
[2020-02-16] MEDS: HEPARIN 5,000 UNITS/ML, 1ML SQ SCH ×3 (06:31→21:51)
[2020-02-16 06:46] VITALS: BP 104/62
[2020-02-16] MEDS: MULTIVITAMIN 1 TABLET PO SCH (08:46)
[2020-02-16] MEDS: LACTOBACILLUS CHEW TABLET PO SCH ×3 (08:46→21:52)
[2020-02-16] MEDS: morphine SULFATE 10 MG/ML, 1ML IVPush PRN (09:26)
[2020-02-16 13:03] VITALS: BP 126/69
[2020-02-16 18:25] VITALS: BP 130/74
[2020-02-16] MEDS: INSULIN GLARGINE 100 UNITS/ML, PEN SQ-INSULIN SCH (21:52)
[2020-02-17 00:23] VITALS: BP 117/67
[2020-02-17] MEDS: AMPICILLIN/SULBACTAM 3 GM in SODIUM CHLORIDE 0.9% 100 ML IV SCH ×4 (03:37→21:57)
[2020-02-17] MEDS: ACETAMINOPHEN 325 MG TABLET PO SCH ×4 (03:37→21:56)
[2020-02-17] MEDS: HEPARIN 5,000 UNITS/ML, 1ML SQ SCH ×3 (06:13→21:57)
[2020-02-17] MEDS: INSULIN LISPRO 100 UNITS/ML, PEN SQ-INSULIN SCH ×4 (06:15→21:00)
[2020-02-17 06:19] VITALS: BP 124/72
[2020-02-17] MEDS: LACTOBACILLUS CHEW TABLET PO SCH ×3 (09:14→21:56)
[2020-02-17] MEDS: MULTIVITAMIN 1 TABLET PO SCH (09:15)
[2020-02-17 13:01] VITALS: BP 111/68
[2020-02-17 18:44] VITALS: BP 117/72
[2020-02-17] MEDS: INSULIN GLARGINE 100 UNITS/ML, PEN SQ-INSULIN SCH (21:36)
[2020-02-18 01:19] VITALS: BP 116/69
[2020-02-18] MEDS: AMPICILLIN/SULBACTAM 3 GM in SODIUM CHLORIDE 0.9% 100 ML IV SCH ×4 (03:43→22:09)
[2020-02-18] MEDS: ACETAMINOPHEN 325 MG TABLET PO SCH ×4 (03:43→22:06)
[2020-02-18] MEDS: HEPARIN 5,000 UNITS/ML, 1ML SQ SCH ×3 (06:33→22:09)
[2020-02-18] MEDS: INSULIN LISPRO 100 UNITS/ML, PEN SQ-INSULIN SCH ×4 (06:35→22:08)
[2020-02-18 07:54] VITALS: BP 106/64
[2020-02-18] MEDS: LACTOBACILLUS CHEW TABLET PO SCH ×3 (09:43→21:59)
[2020-02-18] MEDS: morphine SULFATE 10 MG/ML, 1ML IVPush PRN (09:43)
[2020-02-18] MEDS: MULTIVITAMIN 1 TABLET PO SCH (09:43)
[2020-02-18 13:38] VITALS: BP 112/67
[2020-02-18 18:38] VITALS: BP 124/70
[2020-02-18] MEDS: INSULIN GLARGINE 100 UNITS/ML, PEN SQ-INSULIN SCH (22:07)
[2020-02-19 01:14] VITALS: BP 118/64
[2020-02-19] MEDS: ACETAMINOPHEN 325 MG TABLET PO SCH ×4 (03:51→21:28)
[2020-02-19] MEDS: AMPICILLIN/SULBACTAM 3 GM in SODIUM CHLORIDE 0.9% 100 ML IV SCH ×4 (03:52→21:47)
[2020-02-19] MEDS: HEPARIN 5,000 UNITS/ML, 1ML SQ SCH ×3 (06:32→21:47)
[2020-02-19] MEDS: INSULIN LISPRO 100 UNITS/ML, PEN SQ-INSULIN SCH ×4 (06:33→21:28)
[2020-02-19 07:28] VITALS: BP 110/68
[2020-02-19] MEDS: MULTIVITAMIN 1 TABLET PO SCH (08:45)
[2020-02-19] MEDS: LACTOBACILLUS CHEW TABLET PO SCH ×3 (08:45→21:28)
[2020-02-19 13:32] VITALS: BP 115/70
[2020-02-19 19:36] VITALS: BP 116/69
[2020-02-19] MEDS: INSULIN GLARGINE 100 UNITS/ML, PEN SQ-INSULIN SCH (21:28)
[2020-02-20] MEDS: AMPICILLIN/SULBACTAM 3 GM in SODIUM CHLORIDE 0.9% 100 ML IV SCH ×4 (04:00→23:20)
[2020-02-20 04:47] VITALS: BP 112/61
[2020-02-20] MEDS: ACETAMINOPHEN 325 MG TABLET PO SCH ×4 (04:49→22:07)
[2020-02-20 05:21] LABS: BASOPHILS # (AUTO) 0.04 x10^3/uL (0-0.1); BASOPHILS % (AUTO) 1 % (0-1); EOSINOPHILS # (AUTO) 0.78 x10^3/uL (0-0.4); EOSINOPHILS % (AUTO) 9 % (1-7); LYMPHOCYTES # (AUTO) 2.06 x10^3/uL (1-3.4); LYMPHOCYTES % (AUTO) 23 % (22-44); MD NO; MEAN CORPUSCULAR HEMOGLOBIN 31.6 pg (27.5-34.5); MEAN CORPUSCULAR HGB CONC 33.8 g/dL (33.2-36.2); MEAN CORPUSCULAR VOLUME 93.7 fL (81-97); MEAN PLATELET VOLUME 9.7 fL (7.4-10.4); MONOCYTES # (AUTO) 0.71 x10^3/uL (0.2-0.8); MONOCYTES % (AUTO) 8 % (2-9); NEUTROPHILS # (AUTO) 5.56 x10^3/uL (1.8-6.8); NEUTROPHILS % (AUTO) 61 % (42-75); PLATELET COUNT 323 x10^3/uL (130-400); RED BLOOD COUNT 3.93 x10^6/uL (4.38-5.82); RED CELL DISTRIBUTION WIDTH 15.7 % (9.4-14.8)
[2020-02-20 05:22] LABS: ALANINE AMINOTRANSFERASE 23 U/L (12-78); ALBUMIN 2.4 g/dL (3.4-5.0); ANION GAP 5 mmol/L (5-15); CALCIUM 8.9 mg/dL (8.5-10.1); CHLORIDE 109 mmol/L (98-107); CREATININE 0.61 mg/dL (0.7-1.3)
[2020-02-20 05:34] LABS: ALKALINE PHOSPHATASE 78 U/L (45-117); BILIRUBIN,TOTAL 0.2 mg/dL (0.2-1.0); TOTAL PROTEIN 7.8 g/dL (6.4-8.2)
[2020-02-20 06:15] LABS: HCT (SEDRATE) 36.8 % (39.2-51.8)
[2020-02-20] MEDS: HEPARIN 5,000 UNITS/ML, 1ML SQ SCH ×3 (06:19→22:04)
[2020-02-20] MEDS: INSULIN LISPRO 100 UNITS/ML, PEN SQ-INSULIN SCH ×4 (06:21→22:05)
[2020-02-20 07:15] VITALS: BP 106/67
[2020-02-20] MEDS: LACTOBACILLUS CHEW TABLET PO SCH ×3 (10:05→22:07)
[2020-02-20] MEDS: MULTIVITAMIN 1 TABLET PO SCH (10:05)
[2020-02-20] MEDS: SODIUM CHLORIDE FLUSH 10ML SYR IVF SCH ×2 (10:12→23:20)
[2020-02-20 13:36] VITALS: BP 110/64
[2020-02-20] MEDS: POLYETHYLENE GLYCOL 17 GM PACKET PO PRN (16:24)
[2020-02-20 20:26] VITALS: BP 126/69
[2020-02-20] MEDS: INSULIN GLARGINE 100 UNITS/ML, PEN SQ-INSULIN SCH (22:06)
[2020-02-21 02:08] VITALS: BP 121/74
[2020-02-21] MEDS: ACETAMINOPHEN 325 MG TABLET PO SCH ×4 (04:30→21:47)
[2020-02-21] MEDS: AMPICILLIN/SULBACTAM 3 GM in SODIUM CHLORIDE 0.9% 100 ML IV SCH (04:30)
[2020-02-21 05:45] LABS: BASOPHILS # (AUTO) 0.03 x10^3/uL (0-0.1); BASOPHILS % (AUTO) 0 % (0-1); EOSINOPHILS # (AUTO) 0.85 x10^3/uL (0-0.4); EOSINOPHILS % (AUTO) 9 % (1-7); LYMPHOCYTES % (AUTO) 20 % (22-44); MD NO; MEAN CORPUSCULAR HEMOGLOBIN 32.1 pg (27.5-34.5); MEAN CORPUSCULAR HGB CONC 34.4 g/dL (33.2-36.2); MEAN CORPUSCULAR VOLUME 93.3 fL (81-97); MEAN PLATELET VOLUME 9.8 fL (7.4-10.4); MONOCYTES # (AUTO) 0.87 x10^3/uL (0.2-0.8); MONOCYTES % (AUTO) 9 % (2-9); NEUTROPHILS # (AUTO) 5.61 x10^3/uL (1.8-6.8); NEUTROPHILS % (AUTO) 61 % (42-75); PLATELET COUNT 329 x10^3/uL (130-400); RED BLOOD COUNT 3.79 x10^6/uL (4.38-5.82); RED CELL DISTRIBUTION WIDTH 15.4 % (9.4-14.8)
[2020-02-21] MEDS: HEPARIN 5,000 UNITS/ML, 1ML SQ SCH ×3 (06:45→23:53)
[2020-02-21] MEDS: INSULIN LISPRO 100 UNITS/ML, PEN SQ-INSULIN SCH ×4 (07:00→21:12)
[2020-02-21 07:20] VITALS: BP 108/65
[2020-02-21] MEDS: LACTOBACILLUS CHEW TABLET PO SCH ×3 (08:24→21:47)
[2020-02-21] MEDS: POLYETHYLENE GLYCOL 17 GM PACKET PO PRN (08:24)
[2020-02-21] MEDS: MULTIVITAMIN 1 TABLET PO SCH (08:24)
[2020-02-21] MEDS: SODIUM CHLORIDE FLUSH 10ML SYR IVF SCH ×2 (08:26→21:47)
[2020-02-21] MEDS: morphine SULFATE 10 MG/ML, 1ML IVPush PRN (13:16)
[2020-02-21 14:20] VITALS: BP 116/67
[2020-02-21 20:43] VITALS: BP 111/61
[2020-02-21] MEDS: INSULIN GLARGINE 100 UNITS/ML, PEN SQ-INSULIN SCH (21:46)
[2020-02-22 01:16] VITALS: BP 115/72
[2020-02-22] MEDS: ACETAMINOPHEN 325 MG TABLET PO SCH ×4 (05:04→22:00)
[2020-02-22] MEDS: INSULIN LISPRO 100 UNITS/ML, PEN SQ-INSULIN SCH ×4 (06:23→21:23)
[2020-02-22 08:03] VITALS: BP 116/73
[2020-02-22] MEDS: HEPARIN 5,000 UNITS/ML, 1ML SQ SCH ×2 (08:49→16:55)
[2020-02-22] MEDS: MULTIVITAMIN 1 TABLET PO SCH (08:49)
[2020-02-22] MEDS: SODIUM CHLORIDE FLUSH 10ML SYR IVF SCH ×2 (08:49→21:00)
[2020-02-22] MEDS: LACTOBACILLUS CHEW TABLET PO SCH ×3 (08:49→21:00)
[2020-02-22 15:37] VITALS: BP 123/71
[2020-02-22 19:32] VITALS: BP 117/67
[2020-02-22] MEDS: INSULIN GLARGINE 100 UNITS/ML, PEN SQ-INSULIN SCH (21:22)
[2020-02-23] MEDS: HEPARIN 5,000 UNITS/ML, 1ML SQ SCH ×3 (01:35→17:04)
[2020-02-23 01:39] VITALS: BP 120/73
[2020-02-23] MEDS: ACETAMINOPHEN 325 MG TABLET PO SCH ×4 (04:00→21:00)
[2020-02-23] MEDS: INSULIN LISPRO 100 UNITS/ML, PEN SQ-INSULIN SCH ×4 (07:00→21:01)
[2020-02-23 07:02] VITALS: BP 122/73
[2020-02-23] MEDS: MULTIVITAMIN 1 TABLET PO SCH (08:46)
[2020-02-23] MEDS: SODIUM CHLORIDE FLUSH 10ML SYR IVF SCH ×2 (08:46→21:00)
[2020-02-23] MEDS: LACTOBACILLUS CHEW TABLET PO SCH ×3 (08:46→21:01)
[2020-02-23] MEDS: morphine SULFATE 10 MG/ML, 1ML IVPush PRN (11:11)
[2020-02-23 13:35] VITALS: BP 128/72
[2020-02-23 18:51] VITALS: BP 117/69
[2020-02-23] MEDS: INSULIN GLARGINE 100 UNITS/ML, PEN SQ-INSULIN SCH (21:01)
[2020-02-24] MEDS: HEPARIN 5,000 UNITS/ML, 1ML SQ SCH ×4 (01:15→23:49)
[2020-02-24 01:20] VITALS: BP 117/70
[2020-02-24] MEDS: ACETAMINOPHEN 325 MG TABLET PO SCH ×4 (04:10→22:10)
[2020-02-24] MEDS: INSULIN LISPRO 100 UNITS/ML, PEN SQ-INSULIN SCH ×4 (07:00→20:40)
[2020-02-24 07:32] VITALS: BP 116/69
[2020-02-24] MEDS: SODIUM CHLORIDE FLUSH 10ML SYR IVF SCH ×2 (08:01→20:35)
[2020-02-24] MEDS: MULTIVITAMIN 1 TABLET PO SCH (08:01)
[2020-02-24] MEDS: LACTOBACILLUS CHEW TABLET PO SCH ×3 (08:01→20:34)
[2020-02-24 13:32] VITALS: BP 125/68
[2020-02-24 20:33] VITALS: BP 124/73
[2020-02-24] MEDS: INSULIN GLARGINE 100 UNITS/ML, PEN SQ-INSULIN SCH (20:41)
[2020-02-25 01:33] VITALS: BP 116/69
[2020-02-25] MEDS: ACETAMINOPHEN 325 MG TABLET PO SCH ×4 (04:22→21:20)
[2020-02-25] MEDS: INSULIN LISPRO 100 UNITS/ML, PEN SQ-INSULIN SCH ×4 (06:29→21:20)
[2020-02-25 07:27] VITALS: BP 122/74
[2020-02-25] MEDS: MULTIVITAMIN 1 TABLET PO SCH (08:45)
[2020-02-25] MEDS: HEPARIN 5,000 UNITS/ML, 1ML SQ SCH ×2 (08:45→16:30)
[2020-02-25] MEDS: LACTOBACILLUS CHEW TABLET PO SCH ×3 (08:45→21:20)
[2020-02-25] MEDS: SODIUM CHLORIDE FLUSH 10ML SYR IVF SCH ×2 (08:46→21:20)
[2020-02-25] MEDS: morphine SULFATE 10 MG/ML, 1ML IVPush PRN (10:38)
[2020-02-25 12:50] VITALS: BP 117/70
[2020-02-25 18:55] VITALS: BP 113/69
[2020-02-25] MEDS: INSULIN GLARGINE 100 UNITS/ML, PEN SQ-INSULIN SCH (21:20)
[2020-02-26] MEDS: HEPARIN 5,000 UNITS/ML, 1ML SQ SCH ×3 (00:34→15:49)
[2020-02-26 01:08] VITALS: BP 116/62
[2020-02-26] MEDS: ACETAMINOPHEN 325 MG TABLET PO SCH ×4 (05:06→21:37)
[2020-02-26] MEDS: INSULIN LISPRO 100 UNITS/ML, PEN SQ-INSULIN SCH ×4 (06:34→21:39)
[2020-02-26 06:56] VITALS: BP 106/68
[2020-02-26] MEDS: LACTOBACILLUS CHEW TABLET PO SCH ×3 (08:19→21:37)
[2020-02-26] MEDS: SODIUM CHLORIDE FLUSH 10ML SYR IVF SCH ×2 (08:19→21:43)
[2020-02-26] MEDS: MULTIVITAMIN 1 TABLET PO SCH (08:19)
[2020-02-26 13:05] VITALS: BP 117/72
[2020-02-26 18:38] VITALS: BP 119/63
[2020-02-26 18:40] VITALS: BP 119/63
[2020-02-26] MEDS: DOCUSATE 100 MG CAPSULE PO SCH (21:36)
[2020-02-26] MEDS: INSULIN GLARGINE 100 UNITS/ML, PEN SQ-INSULIN SCH (21:40)
[2020-02-27] MEDS: HEPARIN 5,000 UNITS/ML, 1ML SQ SCH ×2 (00:09→07:50)
[2020-02-27] MEDS: ACETAMINOPHEN 325 MG TABLET PO SCH ×4 (03:38→21:59)
[2020-02-27 03:40] VITALS: BP 114/68
[2020-02-27] MEDS: INSULIN LISPRO 100 UNITS/ML, PEN SQ-INSULIN SCH ×4 (06:27→20:30)
[2020-02-27 07:18] VITALS: BP 114/68
[2020-02-27] MEDS: MULTIVITAMIN 1 TABLET PO SCH (07:50)
[2020-02-27] MEDS: DOCUSATE 100 MG CAPSULE PO SCH (07:50)
[2020-02-27] MEDS: LACTOBACILLUS CHEW TABLET PO SCH (07:50)
[2020-02-27] MEDS: SODIUM CHLORIDE FLUSH 10ML SYR IVF SCH ×2 (07:51→20:29)
[2020-02-27 13:07] VITALS: BP 124/67
[2020-02-27] MEDS: ENOXAPARIN 40 MG/0.4 ML SQ SCH (16:01)
[2020-02-27 20:06] VITALS: BP 118/66
[2020-02-27] MEDS: SENNA/DOCUSATE TABLET PO SCH (20:29)
[2020-02-27] MEDS: INSULIN GLARGINE 100 UNITS/ML, PEN SQ-INSULIN SCH (20:31)
[2020-02-28 01:58] VITALS: BP 116/68
[2020-02-28] MEDS: ACETAMINOPHEN 325 MG TABLET PO SCH ×4 (03:58→22:04)
[2020-02-28 04:28] LABS: HCT (SEDRATE) 38.7 % (39.2-51.8)
[2020-02-28 04:29] LABS: BASOPHILS # (AUTO) 0.09 x10^3/uL (0-0.1); BASOPHILS % (AUTO) 1 % (0-1); EOSINOPHILS # (AUTO) 0.77 x10^3/uL (0-0.4); EOSINOPHILS % (AUTO) 8 % (1-7); LYMPHOCYTES # (AUTO) 2.23 x10^3/uL (1-3.4); LYMPHOCYTES % (AUTO) 22 % (22-44); MD NO; MEAN CORPUSCULAR HEMOGLOBIN 31.4 pg (27.5-34.5); MEAN CORPUSCULAR HGB CONC 33.5 g/dL (33.2-36.2); MEAN CORPUSCULAR VOLUME 93.9 fL (81-97); MEAN PLATELET VOLUME 9.4 fL (7.4-10.4); MONOCYTES # (AUTO) 0.73 x10^3/uL (0.2-0.8); MONOCYTES % (AUTO) 7 % (2-9); NEUTROPHILS # (AUTO) 6.38 x10^3/uL (1.8-6.8); NEUTROPHILS % (AUTO) 63 % (42-75); PLATELET COUNT 336 x10^3/uL (130-400); RED BLOOD COUNT 4.14 x10^6/uL (4.38-5.82); RED CELL DISTRIBUTION WIDTH 15.6 % (9.4-14.8)
[2020-02-28 04:39] LABS: ALANINE AMINOTRANSFERASE 25 U/L (12-78); ALBUMIN 2.6 g/dL (3.4-5.0); ANION GAP 3 mmol/L (5-15); CALCIUM 9.1 mg/dL (8.5-10.1); CHLORIDE 108 mmol/L (98-107); CREATININE 0.67 mg/dL (0.7-1.3)
[2020-02-28 04:45] LABS: ALKALINE PHOSPHATASE 85 U/L (45-117); BILIRUBIN,TOTAL 0.3 mg/dL (0.2-1.0)
[2020-02-28] MEDS: INSULIN LISPRO 100 UNITS/ML, PEN SQ-INSULIN SCH ×4 (07:00→20:36)
[2020-02-28] MEDS: SODIUM CHLORIDE FLUSH 10ML SYR IVF SCH ×2 (07:54→20:35)
[2020-02-28] MEDS: SENNA/DOCUSATE TABLET PO SCH ×2 (07:54→20:35)
[2020-02-28] MEDS: MULTIVITAMIN 1 TABLET PO SCH (07:54)
[2020-02-28 08:09] VITALS: BP 122/81
[2020-02-28] MEDS: morphine SULFATE 10 MG/ML, 1ML IVPush PRN (13:10)
[2020-02-28 15:39] VITALS: BP 129/77
[2020-02-28] MEDS: ENOXAPARIN 40 MG/0.4 ML SQ SCH (16:14)
[2020-02-28 20:09] VITALS: BP 118/65
[2020-02-28] MEDS: INSULIN GLARGINE 100 UNITS/ML, PEN SQ-INSULIN SCH (20:37)
[2020-02-29 02:10] VITALS: BP 111/65
[2020-02-29] MEDS: ACETAMINOPHEN 325 MG TABLET PO SCH ×4 (04:01→23:02)
[2020-02-29 04:30] LABS: BASOPHILS # (AUTO) 0.07 x10^3/uL (0-0.1); BASOPHILS % (AUTO) 1 % (0-1); EOSINOPHILS # (AUTO) 0.77 x10^3/uL (0-0.4); EOSINOPHILS % (AUTO) 7 % (1-7); LYMPHOCYTES # (AUTO) 2.19 x10^3/uL (1-3.4); LYMPHOCYTES % (AUTO) 20 % (22-44); MD NO; MEAN CORPUSCULAR HEMOGLOBIN 31.9 pg (27.5-34.5); MEAN CORPUSCULAR HGB CONC 33.9 g/dL (33.2-36.2); MEAN CORPUSCULAR VOLUME 94.1 fL (81-97); MEAN PLATELET VOLUME 9.5 fL (7.4-10.4); MONOCYTES # (AUTO) 0.82 x10^3/uL (0.2-0.8); MONOCYTES % (AUTO) 7 % (2-9); NEUTROPHILS # (AUTO) 7.31 x10^3/uL (1.8-6.8); NEUTROPHILS % (AUTO) 66 % (42-75); PLATELET COUNT 325 x10^3/uL (130-400); RED BLOOD COUNT 4.05 x10^6/uL (4.38-5.82)
[2020-02-29] MEDS: INSULIN LISPRO 100 UNITS/ML, PEN SQ-INSULIN SCH ×4 (07:20→20:31)
[2020-02-29] MEDS: MULTIVITAMIN 1 TABLET PO SCH (08:18)
[2020-02-29] MEDS: SENNA/DOCUSATE TABLET PO SCH ×2 (08:18→20:30)
[2020-02-29] MEDS: SODIUM CHLORIDE FLUSH 10ML SYR IVF SCH ×2 (08:21→20:30)
[2020-02-29 08:25] VITALS: BP 116/75
[2020-02-29 14:04] VITALS: BP 120/74
[2020-02-29] MEDS: ENOXAPARIN 40 MG/0.4 ML SQ SCH ×2 (16:27→17:05)
[2020-02-29 18:42] VITALS: BP 123/69
[2020-02-29] MEDS: INSULIN GLARGINE 100 UNITS/ML, PEN SQ-INSULIN SCH (20:31)
[2020-03-01 04:28] VITALS: BP 118/71
[2020-03-01] MEDS: ACETAMINOPHEN 325 MG TABLET PO SCH ×4 (04:58→23:12)
[2020-03-01 05:33] LABS: BASOPHILS # (AUTO) 0.07 x10^3/uL (0-0.1); BASOPHILS % (AUTO) 1 % (0-1); EOSINOPHILS % (AUTO) 8 % (1-7); LYMPHOCYTES % (AUTO) 24 % (22-44); MD NO; MEAN CORPUSCULAR HEMOGLOBIN 32.2 pg (27.5-34.5); MEAN CORPUSCULAR HGB CONC 34.2 g/dL (33.2-36.2); MEAN PLATELET VOLUME 9.5 fL (7.4-10.4); MONOCYTES # (AUTO) 0.82 x10^3/uL (0.2-0.8); MONOCYTES % (AUTO) 8 % (2-9); NEUTROPHILS # (AUTO) 6.02 x10^3/uL (1.8-6.8); NEUTROPHILS % (AUTO) 60 % (42-75); PLATELET COUNT 302 x10^3/uL (130-400); RED BLOOD COUNT 4.06 x10^6/uL (4.38-5.82); RED CELL DISTRIBUTION WIDTH 14.8 % (9.4-14.8)
[2020-03-01 05:37] LABS: ALANINE AMINOTRANSFERASE 26 U/L (12-78); ALBUMIN 2.6 g/dL (3.4-5.0); ANION GAP 7 mmol/L (5-15); CALCIUM 9.1 mg/dL (8.5-10.1); CHLORIDE 110 mmol/L (98-107); CREATININE 0.67 mg/dL (0.7-1.3)
[2020-03-01 05:39] LABS: ALKALINE PHOSPHATASE 88 U/L (45-117); BILIRUBIN,TOTAL 0.5 mg/dL (0.2-1.0); TOTAL PROTEIN 7.9 g/dL (6.4-8.2)
[2020-03-01] MEDS: INSULIN LISPRO 100 UNITS/ML, PEN SQ-INSULIN SCH ×4 (07:00→20:34)
[2020-03-01] MEDS: SENNA/DOCUSATE TABLET PO SCH ×2 (07:43→20:03)
[2020-03-01] MEDS: SODIUM CHLORIDE FLUSH 10ML SYR IVF SCH ×2 (07:45→20:04)
[2020-03-01] MEDS: MULTIVITAMIN 1 TABLET PO SCH (07:45)
[2020-03-01 08:00] VITALS: BP 124/71
[2020-03-01] MEDS: morphine SULFATE 10 MG/ML, 1ML IVPush PRN (10:42)
[2020-03-01 12:21] LABS: BASOPHILS # (AUTO) 0.06 x10^3/uL (0-0.1); BASOPHILS % (AUTO) 1 % (0-1); EOSINOPHILS % (AUTO) 7 % (1-7); LYMPHOCYTES % (AUTO) 21 % (22-44); MD NO; MEAN CORPUSCULAR HEMOGLOBIN 31.8 pg (27.5-34.5); MEAN CORPUSCULAR HGB CONC 34.1 g/dL (33.2-36.2); MEAN CORPUSCULAR VOLUME 93.4 fL (81-97); MEAN PLATELET VOLUME 9.5 fL (7.4-10.4); MONOCYTES % (AUTO) 6 % (2-9); NEUTROPHILS # (AUTO) 7.18 x10^3/uL (1.8-6.8); NEUTROPHILS % (AUTO) 67 % (42-75); PLATELET COUNT 336 x10^3/uL (130-400); RED BLOOD COUNT 4.26 x10^6/uL (4.38-5.82); RED CELL DISTRIBUTION WIDTH 14.8 % (9.4-14.8)
[2020-03-01 13:30] VITALS: BP 109/63
[2020-03-01] MEDS: ENOXAPARIN 40 MG/0.4 ML SQ SCH (16:45)
[2020-03-01 19:53] VITALS: BP 135/73
[2020-03-01] MEDS: INSULIN GLARGINE 100 UNITS/ML, PEN SQ-INSULIN SCH (20:34)
[2020-03-02 02:21] VITALS: BP 111/64
[2020-03-02] MEDS: ACETAMINOPHEN 325 MG TABLET PO SCH ×4 (04:36→23:22)
[2020-03-02 05:00] LABS: BASOPHILS # (AUTO) 0.08 x10^3/uL (0-0.1); BASOPHILS % (AUTO) 1 % (0-1); EOSINOPHILS # (AUTO) 0.88 x10^3/uL (0-0.4); EOSINOPHILS % (AUTO) 8 % (1-7); LYMPHOCYTES # (AUTO) 2.17 x10^3/uL (1-3.4); LYMPHOCYTES % (AUTO) 21 % (22-44); MD NO; MEAN CORPUSCULAR HEMOGLOBIN 31.9 pg (27.5-34.5); MEAN CORPUSCULAR HGB CONC 33.9 g/dL (33.2-36.2); MEAN CORPUSCULAR VOLUME 94.1 fL (81-97); MEAN PLATELET VOLUME 9.6 fL (7.4-10.4); MONOCYTES # (AUTO) 0.71 x10^3/uL (0.2-0.8); MONOCYTES % (AUTO) 7 % (2-9); NEUTROPHILS # (AUTO) 6.66 x10^3/uL (1.8-6.8); NEUTROPHILS % (AUTO) 64 % (42-75); PLATELET COUNT 306 x10^3/uL (130-400); RED BLOOD COUNT 4.12 x10^6/uL (4.38-5.82); RED CELL DISTRIBUTION WIDTH 14.7 % (9.4-14.8)
[2020-03-02 05:04] LABS: ANION GAP 8 mmol/L (5-15); CHLORIDE 109 mmol/L (98-107); CREATININE 0.65 mg/dL (0.7-1.3)
[2020-03-02 06:45] VITALS: BP 123/72
[2020-03-02] MEDS: INSULIN LISPRO 100 UNITS/ML, PEN SQ-INSULIN SCH ×4 (07:00→21:06)
[2020-03-02] MEDS: SENNA/DOCUSATE TABLET PO SCH ×2 (08:15→21:05)
[2020-03-02] MEDS: MULTIVITAMIN 1 TABLET PO SCH (08:15)
[2020-03-02] MEDS: SODIUM CHLORIDE FLUSH 10ML SYR IVF SCH ×2 (08:16→21:05)
[2020-03-02 12:18] VITALS: BP 110/71
[2020-03-02] MEDS: ENOXAPARIN 40 MG/0.4 ML SQ SCH (16:00)
[2020-03-02 19:07] VITALS: BP 131/73
[2020-03-02] MEDS: INSULIN GLARGINE 100 UNITS/ML, PEN SQ-INSULIN SCH (21:06)
[2020-03-03 02:34] VITALS: BP 124/68
[2020-03-03] MEDS: ACETAMINOPHEN 325 MG TABLET PO SCH ×4 (05:27→22:45)
[2020-03-03 05:55] LABS: BASOPHILS # (AUTO) 0.09 x10^3/uL (0-0.1); BASOPHILS % (AUTO) 1 % (0-1); EOSINOPHILS # (AUTO) 0.79 x10^3/uL (0-0.4); EOSINOPHILS % (AUTO) 8 % (1-7); LYMPHOCYTES # (AUTO) 2.23 x10^3/uL (1-3.4); LYMPHOCYTES % (AUTO) 22 % (22-44); MD NO; MEAN CORPUSCULAR HEMOGLOBIN 32.4 pg (27.5-34.5); MEAN CORPUSCULAR HGB CONC 34.5 g/dL (33.2-36.2); MEAN CORPUSCULAR VOLUME 93.9 fL (81-97); MEAN PLATELET VOLUME 9.3 fL (7.4-10.4); MONOCYTES # (AUTO) 0.71 x10^3/uL (0.2-0.8); MONOCYTES % (AUTO) 7 % (2-9); NEUTROPHILS # (AUTO) 6.34 x10^3/uL (1.8-6.8); NEUTROPHILS % (AUTO) 62 % (42-75); PLATELET COUNT 299 x10^3/uL (130-400); RED BLOOD COUNT 4.14 x10^6/uL (4.38-5.82); RED CELL DISTRIBUTION WIDTH 14.2 % (9.4-14.8)
[2020-03-03] MEDS: INSULIN LISPRO 100 UNITS/ML, PEN SQ-INSULIN SCH ×4 (07:00→20:49)
[2020-03-03 08:00] VITALS: BP 135/74
[2020-03-03] MEDS: SODIUM CHLORIDE FLUSH 10ML SYR IVF SCH ×2 (09:00→20:49)
[2020-03-03] MEDS: SENNA/DOCUSATE TABLET PO SCH ×2 (09:45→20:49)
[2020-03-03] MEDS: MULTIVITAMIN 1 TABLET PO SCH (09:45)
[2020-03-03] MEDS: morphine SULFATE 10 MG/ML, 1ML IVPush PRN (09:45)
[2020-03-03 12:55] VITALS: BP 120/73
[2020-03-03] MEDS: ENOXAPARIN 40 MG/0.4 ML SQ SCH (16:07)
[2020-03-03 18:50] VITALS: BP 124/72
[2020-03-03] MEDS: INSULIN GLARGINE 100 UNITS/ML, PEN SQ-INSULIN SCH (20:50)
[2020-03-04 00:47] VITALS: BP 106/61
[2020-03-04] MEDS: ACETAMINOPHEN 325 MG TABLET PO SCH ×4 (05:14→22:45)
[2020-03-04 05:45] LABS: CALCIUM 9.3 mg/dL (8.5-10.1); CREATININE 0.63 mg/dL (0.7-1.3)
[2020-03-04 05:55] LABS: ANION GAP 7 mmol/L (5-15); CHLORIDE 108 mmol/L (98-107)
[2020-03-04 06:44] VITALS: BP 109/61
[2020-03-04] MEDS: INSULIN LISPRO 100 UNITS/ML, PEN SQ-INSULIN SCH ×4 (07:00→20:43)
[2020-03-04] MEDS: SENNA/DOCUSATE TABLET PO SCH ×2 (08:11→20:43)
[2020-03-04] MEDS: SODIUM CHLORIDE FLUSH 10ML SYR IVF SCH ×2 (08:11→22:45)
[2020-03-04] MEDS: MULTIVITAMIN 1 TABLET PO SCH (08:11)
[2020-03-04 13:21] VITALS: BP 120/78
[2020-03-04] MEDS: ENOXAPARIN 40 MG/0.4 ML SQ SCH (16:30)
[2020-03-04 20:28] VITALS: BP 102/54
[2020-03-04] MEDS: INSULIN GLARGINE 100 UNITS/ML, PEN SQ-INSULIN SCH (20:43)
[2020-03-05 02:34] VITALS: BP 109/63
[2020-03-05] MEDS: ACETAMINOPHEN 325 MG TABLET PO SCH ×4 (04:31→23:01)
[2020-03-05] MEDS: INSULIN LISPRO 100 UNITS/ML, PEN SQ-INSULIN SCH ×4 (06:28→20:14)
[2020-03-05 07:53] VITALS: BP 110/65
[2020-03-05] MEDS: SODIUM CHLORIDE FLUSH 10ML SYR IVF SCH ×2 (08:07→20:14)
[2020-03-05] MEDS: SENNA/DOCUSATE TABLET PO SCH ×2 (08:07→20:14)
[2020-03-05] MEDS: MULTIVITAMIN 1 TABLET PO SCH (08:07)
[2020-03-05 13:50] VITALS: BP 115/67
[2020-03-05] MEDS: ENOXAPARIN 40 MG/0.4 ML SQ SCH (16:05)
[2020-03-05 19:41] VITALS: BP 111/65
[2020-03-05] MEDS: INSULIN GLARGINE 100 UNITS/ML, PEN SQ-INSULIN SCH (20:15)
[2020-03-06 02:50] VITALS: BP 118/71
[2020-03-06] MEDS: ACETAMINOPHEN 325 MG TABLET PO SCH ×4 (05:15→23:07)
[2020-03-06] MEDS: INSULIN LISPRO 100 UNITS/ML, PEN SQ-INSULIN SCH ×4 (07:00→20:09)
[2020-03-06 07:28] VITALS: BP 106/64
[2020-03-06] MEDS: MULTIVITAMIN 1 TABLET PO SCH (09:01)
[2020-03-06] MEDS: SENNA/DOCUSATE TABLET PO SCH ×2 (09:01→20:09)
[2020-03-06] MEDS: SODIUM CHLORIDE FLUSH 10ML SYR IVF SCH ×2 (09:02→20:09)
[2020-03-06 13:45] VITALS: BP 117/69
[2020-03-06] MEDS: morphine SULFATE 10 MG/ML, 1ML IVPush PRN (14:32)
[2020-03-06] MEDS ORDERED: metFORMIN 500 MG TABLET ONE (16:33)
[2020-03-06] MEDS: metFORMIN 500 MG TABLET PO SCH (16:49)
[2020-03-06] MEDS: ENOXAPARIN 40 MG/0.4 ML SQ SCH (16:50)
[2020-03-06 20:03] VITALS: BP 106/62
[2020-03-06] MEDS: INSULIN GLARGINE 100 UNITS/ML, PEN SQ-INSULIN SCH (20:08)
[2020-03-07 03:25] VITALS: BP 112/67
[2020-03-07] MEDS: ACETAMINOPHEN 325 MG TABLET PO SCH ×4 (05:52→22:08)
[2020-03-07] MEDS: INSULIN LISPRO 100 UNITS/ML, PEN SQ-INSULIN SCH ×4 (07:00→21:00)
[2020-03-07 07:21] VITALS: BP 111/69
[2020-03-07] MEDS: SENNA/DOCUSATE TABLET PO SCH ×2 (07:22→22:08)
[2020-03-07] MEDS: metFORMIN 500 MG TABLET PO SCH ×2 (07:22→16:22)
[2020-03-07] MEDS: SODIUM CHLORIDE FLUSH 10ML SYR IVF SCH ×2 (07:22→22:08)
[2020-03-07] MEDS: MULTIVITAMIN 1 TABLET PO SCH (07:22)
[2020-03-07 13:44] VITALS: BP 111/72
[2020-03-07] MEDS: ENOXAPARIN 40 MG/0.4 ML SQ SCH (16:21)
[2020-03-07 19:30] VITALS: BP 111/65
[2020-03-07] MEDS: INSULIN GLARGINE 100 UNITS/ML, PEN SQ-INSULIN SCH (22:29)
[2020-03-08 03:43] VITALS: BP 112/72
[2020-03-08] MEDS: ACETAMINOPHEN 325 MG TABLET PO SCH ×4 (04:11→23:20)
[2020-03-08 04:36] LABS: BASOPHILS # (AUTO) 0.05 x10^3/uL (0-0.1); BASOPHILS % (AUTO) 1 % (0-1); EOSINOPHILS # (AUTO) 0.79 x10^3/uL (0-0.4); EOSINOPHILS % (AUTO) 9 % (1-7); LYMPHOCYTES % (AUTO) 25 % (22-44); MD NO; MEAN CORPUSCULAR HEMOGLOBIN 31.5 pg (27.5-34.5); MEAN CORPUSCULAR HGB CONC 33.6 g/dL (33.2-36.2); MEAN CORPUSCULAR VOLUME 93.5 fL (81-97); MEAN PLATELET VOLUME 9.3 fL (7.4-10.4); MONOCYTES # (AUTO) 0.65 x10^3/uL (0.2-0.8); MONOCYTES % (AUTO) 7 % (2-9); NEUTROPHILS # (AUTO) 5.44 x10^3/uL (1.8-6.8); NEUTROPHILS % (AUTO) 59 % (42-75); PLATELET COUNT 281 x10^3/uL (130-400); RED BLOOD COUNT 4.24 x10^6/uL (4.38-5.82)
[2020-03-08 04:49] LABS: ANION GAP 6 mmol/L (5-15); CALCIUM 9.2 mg/dL (8.5-10.1); CHLORIDE 109 mmol/L (98-107); CREATININE 0.66 mg/dL (0.7-1.3)
[2020-03-08] MEDS: INSULIN LISPRO 100 UNITS/ML, PEN SQ-INSULIN SCH ×4 (07:00→20:44)
[2020-03-08 07:38] VITALS: BP 111/62
[2020-03-08] MEDS: metFORMIN 500 MG TABLET PO SCH ×2 (08:52→16:34)
[2020-03-08] MEDS: MULTIVITAMIN 1 TABLET PO SCH (08:53)
[2020-03-08] MEDS: OXYcodone IR 5MG TABLET PO PRN (08:53)
[2020-03-08] MEDS: SENNA/DOCUSATE TABLET PO SCH ×2 (08:53→20:41)
[2020-03-08] MEDS: SODIUM CHLORIDE FLUSH 10ML SYR IVF SCH ×2 (08:55→20:41)
[2020-03-08 13:05] VITALS: BP 126/81
[2020-03-08] MEDS: ENOXAPARIN 40 MG/0.4 ML SQ SCH (16:35)
[2020-03-08 19:05] VITALS: BP 132/76
[2020-03-08] MEDS: INSULIN GLARGINE 100 UNITS/ML, PEN SQ-INSULIN SCH (20:44)
[2020-03-09 01:19] VITALS: BP 113/67
[2020-03-09] MEDS: ACETAMINOPHEN 325 MG TABLET PO SCH ×4 (04:49→22:15)
[2020-03-09 05:35] LABS: ALBUMIN 2.8 g/dL (3.4-5.0); ANION GAP 7 mmol/L (5-15); CALCIUM 9.1 mg/dL (8.5-10.1); CHLORIDE 109 mmol/L (98-107)
[2020-03-09 05:40] LABS: ALANINE AMINOTRANSFERASE 30 U/L (12-78); ALKALINE PHOSPHATASE 82 U/L (45-117); BILIRUBIN,TOTAL 0.4 mg/dL (0.2-1.0); CREATININE 0.63 mg/dL (0.7-1.3); TOTAL PROTEIN 7.9 g/dL (6.4-8.2)
[2020-03-09] MEDS: INSULIN LISPRO 100 UNITS/ML, PEN SQ-INSULIN SCH ×4 (05:56→21:00)
[2020-03-09] MEDS: metFORMIN 500 MG TABLET PO SCH ×2 (07:49→17:09)
[2020-03-09] MEDS: MULTIVITAMIN 1 TABLET PO SCH (07:49)
[2020-03-09] MEDS: SENNA/DOCUSATE TABLET PO SCH ×2 (07:49→22:15)
[2020-03-09] MEDS: SODIUM CHLORIDE FLUSH 10ML SYR IVF SCH ×2 (07:49→22:15)
[2020-03-09 07:58] VITALS: BP 115/72
[2020-03-09 13:15] VITALS: BP 117/76
[2020-03-09] MEDS: ENOXAPARIN 40 MG/0.4 ML SQ SCH (17:09)
[2020-03-09 19:20] VITALS: BP 127/70
[2020-03-09] MEDS: INSULIN GLARGINE 100 UNITS/ML, PEN SQ-INSULIN SCH (22:16)
[2020-03-10 01:00] VITALS: BP 121/73
[2020-03-10] MEDS: ACETAMINOPHEN 325 MG TABLET PO SCH ×4 (05:06→23:27)
[2020-03-10] MEDS: INSULIN LISPRO 100 UNITS/ML, PEN SQ-INSULIN SCH ×4 (06:44→21:42)
[2020-03-10 07:44] VITALS: BP 115/75
[2020-03-10] MEDS: SENNA/DOCUSATE TABLET PO SCH ×3 (09:00→21:00)
[2020-03-10] MEDS: metFORMIN 500 MG TABLET PO SCH ×2 (09:07→17:09)
[2020-03-10] MEDS: MULTIVITAMIN 1 TABLET PO SCH (09:07)
[2020-03-10] MEDS: OXYcodone IR 5MG TABLET PO PRN (09:08)
[2020-03-10] MEDS: SODIUM CHLORIDE FLUSH 10ML SYR IVF SCH ×2 (09:09→21:41)
[2020-03-10 12:56] VITALS: BP 113/82
[2020-03-10] MEDS: ENOXAPARIN 40 MG/0.4 ML SQ SCH (17:09)
[2020-03-10 19:39] VITALS: BP 125/66
[2020-03-10] MEDS: INSULIN GLARGINE 100 UNITS/ML, PEN SQ-INSULIN SCH (21:42)
[2020-03-11 00:32] VITALS: BP 125/70
[2020-03-11] MEDS: ACETAMINOPHEN 325 MG TABLET PO SCH ×2 (04:55→11:00)
[2020-03-11] MEDS: INSULIN LISPRO 100 UNITS/ML, PEN SQ-INSULIN SCH ×4 (06:25→21:00)
[2020-03-11 08:00] VITALS: BP 112/66
[2020-03-11] MEDS: SENNA/DOCUSATE TABLET PO SCH ×2 (08:15→21:00)
[2020-03-11] MEDS: MULTIVITAMIN 1 TABLET PO SCH (08:16)
[2020-03-11] MEDS: SODIUM CHLORIDE FLUSH 10ML SYR IVF SCH ×2 (08:16→21:00)
[2020-03-11] MEDS: metFORMIN 500 MG TABLET PO SCH ×2 (08:16→17:06)
[2020-03-11 13:42] VITALS: BP 118/74
[2020-03-11] MEDS: ENOXAPARIN 40 MG/0.4 ML SQ SCH (17:06)
[2020-03-11] MEDS: INSULIN GLARGINE 100 UNITS/ML, PEN SQ-INSULIN SCH (21:18)
[2020-03-11 21:20] VITALS: BP 115/73
[2020-03-12 05:21] VITALS: BP 117/73
[2020-03-12 05:26] LABS: BASOPHILS # (AUTO) 0.07 x10^3/uL (0-0.1); BASOPHILS % (AUTO) 1 % (0-1); EOSINOPHILS % (AUTO) 9 % (1-7); LYMPHOCYTES # (AUTO) 2.33 x10^3/uL (1-3.4); LYMPHOCYTES % (AUTO) 24 % (22-44); MD NO; MEAN CORPUSCULAR HEMOGLOBIN 31.9 pg (27.5-34.5); MEAN CORPUSCULAR HGB CONC 33.9 g/dL (33.2-36.2); MEAN PLATELET VOLUME 9.2 fL (7.4-10.4); MONOCYTES % (AUTO) 7 % (2-9); NEUTROPHILS # (AUTO) 5.65 x10^3/uL (1.8-6.8); NEUTROPHILS % (AUTO) 59 % (42-75); PLATELET COUNT 269 x10^3/uL (130-400); RED BLOOD COUNT 4.25 x10^6/uL (4.38-5.82); RED CELL DISTRIBUTION WIDTH 13.7 % (9.4-14.8)
[2020-03-12 05:34] LABS: ANION GAP 6 mmol/L (5-15); CALCIUM 9.2 mg/dL (8.5-10.1); CHLORIDE 109 mmol/L (98-107); CREATININE 0.77 mg/dL (0.7-1.3)
[2020-03-12 07:01] VITALS: BP 114/73
[2020-03-12] MEDS: INSULIN LISPRO 100 UNITS/ML, PEN SQ-INSULIN SCH ×4 (07:31→20:25)
[2020-03-12] MEDS: MULTIVITAMIN 1 TABLET PO SCH (08:07)
[2020-03-12] MEDS: SENNA/DOCUSATE TABLET PO SCH ×2 (08:07→20:25)
[2020-03-12] MEDS: metFORMIN 500 MG TABLET PO SCH ×2 (08:07→16:29)
[2020-03-12] MEDS: SODIUM CHLORIDE FLUSH 10ML SYR IVF SCH ×2 (08:08→20:24)
[2020-03-12 13:14] VITALS: BP 117/71
[2020-03-12] MEDS: ENOXAPARIN 40 MG/0.4 ML SQ SCH (16:29)
[2020-03-12 19:30] VITALS: BP 117/74
[2020-03-12] MEDS: INSULIN GLARGINE 100 UNITS/ML, PEN SQ-INSULIN SCH (20:24)
[2020-03-13 01:26] VITALS: BP 112/68
[2020-03-13 06:43] VITALS: BP 119/77
[2020-03-13] MEDS: INSULIN LISPRO 100 UNITS/ML, PEN SQ-INSULIN SCH ×4 (07:00→20:48)
[2020-03-13] MEDS: SODIUM CHLORIDE FLUSH 10ML SYR IVF SCH ×2 (07:55→20:46)
[2020-03-13] MEDS: metFORMIN 500 MG TABLET PO SCH ×2 (07:55→17:56)
[2020-03-13] MEDS: MULTIVITAMIN 1 TABLET PO SCH (07:55)
[2020-03-13] MEDS: SENNA/DOCUSATE TABLET PO SCH ×2 (07:55→20:48)
[2020-03-13] MEDS: OXYcodone IR 5MG TABLET PO PRN (12:39)
[2020-03-13 13:12] VITALS: BP 150/90
[2020-03-13] MEDS: ENOXAPARIN 40 MG/0.4 ML SQ SCH (17:57)
[2020-03-13 20:05] VITALS: BP 118/71
[2020-03-13] MEDS: INSULIN GLARGINE 100 UNITS/ML, PEN SQ-INSULIN SCH (20:47)
[2020-03-14 02:10] VITALS: BP 115/73
[2020-03-14 06:31] VITALS: BP 109/60
[2020-03-14] MEDS: INSULIN LISPRO 100 UNITS/ML, PEN SQ-INSULIN SCH ×4 (07:00→21:00)
[2020-03-14] MEDS: MULTIVITAMIN 1 TABLET PO SCH (08:08)
[2020-03-14] MEDS: SENNA/DOCUSATE TABLET PO SCH ×2 (08:08→23:10)
[2020-03-14] MEDS: metFORMIN 500 MG TABLET PO SCH ×2 (08:08→16:28)
[2020-03-14] MEDS: SODIUM CHLORIDE FLUSH 10ML SYR IVF SCH ×2 (08:09→21:46)
[2020-03-14 14:42] VITALS: BP 123/72
[2020-03-14 15:17] VITALS: BP 133/74
[2020-03-14] MEDS: ENOXAPARIN 40 MG/0.4 ML SQ SCH (18:21)
[2020-03-14 19:46] VITALS: BP 129/71
[2020-03-14] MEDS: INSULIN GLARGINE 100 UNITS/ML, PEN SQ-INSULIN SCH (23:10)
[2020-03-15 03:40] VITALS: BP 121/73
[2020-03-15 05:10] LABS: BASOPHILS # (AUTO) 0.06 x10^3/uL (0-0.1); BASOPHILS % (AUTO) 1 % (0-1); EOSINOPHILS # (AUTO) 0.65 x10^3/uL (0-0.4); EOSINOPHILS % (AUTO) 6 % (1-7); LYMPHOCYTES # (AUTO) 2.33 x10^3/uL (1-3.4); LYMPHOCYTES % (AUTO) 22 % (22-44); MD NO; MEAN CORPUSCULAR HEMOGLOBIN 31.3 pg (27.5-34.5); MEAN CORPUSCULAR HGB CONC 33.3 g/dL (33.2-36.2); MEAN PLATELET VOLUME 9.5 fL (7.4-10.4); MONOCYTES # (AUTO) 0.64 x10^3/uL (0.2-0.8); MONOCYTES % (AUTO) 6 % (2-9); NEUTROPHILS # (AUTO) 6.93 x10^3/uL (1.8-6.8); NEUTROPHILS % (AUTO) 65 % (42-75); PLATELET COUNT 271 x10^3/uL (130-400); RED BLOOD COUNT 4.31 x10^6/uL (4.38-5.82); RED CELL DISTRIBUTION WIDTH 13.3 % (9.4-14.8)
[2020-03-15 06:54] VITALS: BP 109/64
[2020-03-15] MEDS: INSULIN LISPRO 100 UNITS/ML, PEN SQ-INSULIN SCH ×4 (07:00→21:00)
[2020-03-15] MEDS: metFORMIN 500 MG TABLET PO SCH ×2 (07:51→17:09)
[2020-03-15] MEDS: MULTIVITAMIN 1 TABLET PO SCH (07:52)
[2020-03-15] MEDS: SODIUM CHLORIDE FLUSH 10ML SYR IVF SCH ×2 (07:52→21:47)
[2020-03-15] MEDS: SENNA/DOCUSATE TABLET PO SCH ×2 (07:52→21:47)
[2020-03-15] MEDS: OXYcodone IR 5MG TABLET PO PRN (09:01)
[2020-03-15 12:46] VITALS: BP 118/81
[2020-03-15] MEDS: ENOXAPARIN 40 MG/0.4 ML SQ SCH (17:09)
[2020-03-15 20:00] VITALS: BP 130/75
[2020-03-15] MEDS: INSULIN GLARGINE 100 UNITS/ML, PEN SQ-INSULIN SCH (21:55)
[2020-03-16 02:38] VITALS: BP 101/65
[2020-03-16] MEDS: INSULIN LISPRO 100 UNITS/ML, PEN SQ-INSULIN SCH ×4 (06:37→21:00)
[2020-03-16 07:10] VITALS: BP 113/76
[2020-03-16] MEDS: MULTIVITAMIN 1 TABLET PO SCH (08:16)
[2020-03-16] MEDS: SENNA/DOCUSATE TABLET PO SCH ×2 (08:16→21:54)
[2020-03-16] MEDS: metFORMIN 500 MG TABLET PO SCH ×2 (08:17→17:10)
[2020-03-16] MEDS: SODIUM CHLORIDE FLUSH 10ML SYR IVF SCH ×2 (08:17→21:54)
[2020-03-16 10:31] LABS: ALANINE AMINOTRANSFERASE 32 U/L (12-78)
[2020-03-16 10:38] LABS: ALKALINE PHOSPHATASE 94 U/L (45-117); BILIRUBIN,TOTAL 0.5 mg/dL (0.2-1.0); PREALBUMIN 26.9 mg/dL (20.0-40.0); TOTAL PROTEIN 8.5 g/dL (6.4-8.2)
[2020-03-16 10:41] LABS: BILIRUBIN, DIRECT < 0.1 mg/dL (0.1-0.2); BILIRUBIN,INDIRECT 0.4 mg/dL (0.0-2.0)
[2020-03-16 13:25] VITALS: BP 111/70
[2020-03-16] MEDS: ENOXAPARIN 40 MG/0.4 ML SQ SCH (17:11)
[2020-03-16 20:57] VITALS: BP 117/74
[2020-03-16] MEDS: INSULIN GLARGINE 100 UNITS/ML, PEN SQ-INSULIN SCH (21:54)
[2020-03-17 02:31] VITALS: BP 122/72
[2020-03-17 05:26] LABS: BASOPHILS # (AUTO) 0.07 x10^3/uL (0-0.1); BASOPHILS % (AUTO) 1 % (0-1); EOSINOPHILS # (AUTO) 0.71 x10^3/uL (0-0.4); EOSINOPHILS % (AUTO) 7 % (1-7); LYMPHOCYTES # (AUTO) 2.23 x10^3/uL (1-3.4); LYMPHOCYTES % (AUTO) 21 % (22-44); MD NO; MEAN CORPUSCULAR HEMOGLOBIN 31.7 pg (27.5-34.5); MEAN CORPUSCULAR HGB CONC 34.4 g/dL (33.2-36.2); MEAN CORPUSCULAR VOLUME 92.1 fL (81-97); MEAN PLATELET VOLUME 10.1 fL (7.4-10.4); MONOCYTES # (AUTO) 0.83 x10^3/uL (0.2-0.8); MONOCYTES % (AUTO) 8 % (2-9); NEUTROPHILS # (AUTO) 7.02 x10^3/uL (1.8-6.8); NEUTROPHILS % (AUTO) 65 % (42-75); PLATELET COUNT 259 x10^3/uL (130-400); RED BLOOD COUNT 4.12 x10^6/uL (4.38-5.82); RED CELL DISTRIBUTION WIDTH 13.4 % (9.4-14.8)
[2020-03-17 05:40] LABS: ANION GAP 6 mmol/L (5-15); CALCIUM 8.9 mg/dL (8.5-10.1); CHLORIDE 108 mmol/L (98-107)
[2020-03-17 05:41] LABS: CREATININE 0.76 mg/dL (0.7-1.3)
[2020-03-17] MEDS: INSULIN LISPRO 100 UNITS/ML, PEN SQ-INSULIN SCH ×4 (07:32→22:11)
[2020-03-17] MEDS: metFORMIN 500 MG TABLET PO SCH ×2 (07:47→17:38)
[2020-03-17] MEDS: SENNA/DOCUSATE TABLET PO SCH ×2 (07:47→22:03)
[2020-03-17] MEDS: MULTIVITAMIN 1 TABLET PO SCH (07:47)
[2020-03-17] MEDS: SODIUM CHLORIDE FLUSH 10ML SYR IVF SCH ×2 (07:48→22:11)
[2020-03-17 08:00] VITALS: BP 118/75
[2020-03-17] MEDS: OXYcodone IR 5MG TABLET PO PRN (09:11)
[2020-03-17 14:54] VITALS: BP 119/76
[2020-03-17] MEDS: ENOXAPARIN 40 MG/0.4 ML SQ SCH (17:38)
[2020-03-17 20:59] VITALS: BP 119/74
[2020-03-17] MEDS: INSULIN GLARGINE 100 UNITS/ML, PEN SQ-INSULIN SCH (22:10)
[2020-03-18 01:41] VITALS: BP 110/65
[2020-03-18 06:17] LABS: BASOPHILS # (AUTO) 0.04 x10^3/uL (0-0.1); BASOPHILS % (AUTO) 0 % (0-1); EOSINOPHILS # (AUTO) 0.54 x10^3/uL (0-0.4); EOSINOPHILS % (AUTO) 5 % (1-7); LYMPHOCYTES # (AUTO) 1.69 x10^3/uL (1-3.4); LYMPHOCYTES % (AUTO) 17 % (22-44); MD NO; MEAN CORPUSCULAR HEMOGLOBIN 31.6 pg (27.5-34.5); MEAN CORPUSCULAR HGB CONC 33.8 g/dL (33.2-36.2); MEAN CORPUSCULAR VOLUME 93.3 fL (81-97); MEAN PLATELET VOLUME 9.3 fL (7.4-10.4); MONOCYTES # (AUTO) 0.82 x10^3/uL (0.2-0.8); MONOCYTES % (AUTO) 8 % (2-9); NEUTROPHILS # (AUTO) 6.95 x10^3/uL (1.8-6.8); NEUTROPHILS % (AUTO) 69 % (42-75); PLATELET COUNT 263 x10^3/uL (130-400); RED BLOOD COUNT 4.33 x10^6/uL (4.38-5.82); RED CELL DISTRIBUTION WIDTH 13.7 % (9.4-14.8)
[2020-03-18 06:30] LABS: ANION GAP 7 mmol/L (5-15); CHLORIDE 109 mmol/L (98-107)
[2020-03-18 06:33] LABS: CALCIUM 9.3 mg/dL (8.5-10.1); CREATININE 0.72 mg/dL (0.7-1.3)
[2020-03-18 07:05] VITALS: BP 112/72
[2020-03-18] MEDS: INSULIN LISPRO 100 UNITS/ML, PEN SQ-INSULIN SCH ×4 (08:01→21:51)
[2020-03-18] MEDS: SODIUM CHLORIDE FLUSH 10ML SYR IVF SCH ×2 (09:23→21:32)
[2020-03-18] MEDS: metFORMIN 500 MG TABLET PO SCH ×2 (09:27→16:25)
[2020-03-18] MEDS: SENNA/DOCUSATE TABLET PO SCH ×2 (09:27→21:32)
[2020-03-18] MEDS: MULTIVITAMIN 1 TABLET PO SCH (09:28)
[2020-03-18 12:27] VITALS: BP 115/73
[2020-03-18] MEDS: ENOXAPARIN 40 MG/0.4 ML SQ SCH (16:25)
[2020-03-18 19:54] VITALS: BP 107/68
[2020-03-18] MEDS: INSULIN GLARGINE 100 UNITS/ML, PEN SQ-INSULIN SCH (21:51)
[2020-03-19 02:27] VITALS: BP 112/72
[2020-03-19] MEDS: INSULIN LISPRO 100 UNITS/ML, PEN SQ-INSULIN SCH ×4 (06:05→20:45)
[2020-03-19 07:22] VITALS: BP 111/74
[2020-03-19] MEDS: SENNA/DOCUSATE TABLET PO SCH ×2 (07:44→20:44)
[2020-03-19] MEDS: metFORMIN 500 MG TABLET PO SCH ×2 (07:44→16:36)
[2020-03-19] MEDS: MULTIVITAMIN 1 TABLET PO SCH (07:44)
[2020-03-19] MEDS: SODIUM CHLORIDE FLUSH 10ML SYR IVF SCH ×2 (07:45→20:44)
[2020-03-19] MEDS: OXYcodone IR 5MG TABLET PO PRN (13:06)
[2020-03-19] MEDS ORDERED: HOLD MEDICATION MC PRN (13:30)
[2020-03-19 13:54] VITALS: BP 125/71
[2020-03-19] MEDS: ENOXAPARIN 40 MG/0.4 ML SQ SCH (16:36)
[2020-03-19 18:28] VITALS: BP 114/70
[2020-03-19] MEDS: INSULIN GLARGINE 100 UNITS/ML, PEN SQ-INSULIN SCH (20:46)
[2020-03-20 00:26] VITALS: BP 117/70
[2020-03-20 06:12] LABS: BASOPHILS # (AUTO) 0.04 x10^3/uL (0-0.1); BASOPHILS % (AUTO) 0 % (0-1); EOSINOPHILS % (AUTO) 6 % (1-7); LYMPHOCYTES # (AUTO) 1.73 x10^3/uL (1-3.4); LYMPHOCYTES % (AUTO) 18 % (22-44); MD NO; MEAN CORPUSCULAR HEMOGLOBIN 31.4 pg (27.5-34.5); MEAN CORPUSCULAR HGB CONC 33.9 g/dL (33.2-36.2); MEAN CORPUSCULAR VOLUME 92.5 fL (81-97); MEAN PLATELET VOLUME 10.1 fL (7.4-10.4); MONOCYTES # (AUTO) 0.89 x10^3/uL (0.2-0.8); MONOCYTES % (AUTO) 9 % (2-9); NEUTROPHILS # (AUTO) 6.54 x10^3/uL (1.8-6.8); NEUTROPHILS % (AUTO) 67 % (42-75); PLATELET COUNT 269 x10^3/uL (130-400); RED CELL DISTRIBUTION WIDTH 13.3 % (9.4-14.8)
[2020-03-20 06:20] LABS: ALBUMIN 2.6 g/dL (3.4-5.0); ANION GAP 6 mmol/L (5-15); CALCIUM 8.9 mg/dL (8.5-10.1); CHLORIDE 109 mmol/L (98-107)
[2020-03-20 06:24] LABS: ALANINE AMINOTRANSFERASE 28 U/L (12-78); ALKALINE PHOSPHATASE 87 U/L (45-117); BILIRUBIN,TOTAL 0.6 mg/dL (0.2-1.0); TOTAL PROTEIN 7.8 g/dL (6.4-8.2)
[2020-03-20] MEDS: INSULIN LISPRO 100 UNITS/ML, PEN SQ-INSULIN SCH ×4 (07:00→20:46)
[2020-03-20 07:13] VITALS: BP 120/75
[2020-03-20] MEDS: metFORMIN 500 MG TABLET PO SCH ×2 (07:44→17:16)
[2020-03-20] MEDS: MULTIVITAMIN 1 TABLET PO SCH (07:44)
[2020-03-20] MEDS: SODIUM CHLORIDE FLUSH 10ML SYR IVF SCH ×2 (07:44→19:37)
[2020-03-20] MEDS: SENNA/DOCUSATE TABLET PO SCH ×2 (07:44→20:50)
[2020-03-20] MEDS ORDERED: CHLORHEXIDINE 15 ML UDC ONE ×2 (12:28→12:38)
[2020-03-20] MEDS ORDERED: FENTANYL PF 250 MCG/5ML ONE (12:29)
[2020-03-20] MEDS ORDERED: PROPOFOL 10 MG/ML, 20ML ONE (12:29)
[2020-03-20] MEDS ORDERED: MIDAZOLAM 1 MG/ML, 2ML ONE (12:29)
[2020-03-20] MEDS ORDERED: ROCURONIUM 10MG/ML,5ML ONE (12:30)
[2020-03-20] MEDS ORDERED: SUCCINYLCHOLINE 20 MG/ML, 10ML ONE (12:30)
[2020-03-20] MEDS ORDERED: MINERAL OIL 10 ML VIAL MC ONE ×2 (12:31→13:55)
[2020-03-20] MEDS ORDERED: EPINEPHRINE 1 MG/ML, 1ML ONE (12:31)
[2020-03-20] MEDS ORDERED: BUPIVACAINE/PF-EPI 0.5% 1:200K ONE (12:31)
[2020-03-20] MEDS ORDERED: CEFAZOLIN 1,000 MG ONE (12:56)
[2020-03-20] MEDS ORDERED: CHLORHEXIDINE 15 ML UDC MM ONE (13:00)
[2020-03-20] MEDS ORDERED: EPINEPHRINE 1 MG/ML, 1ML SQ ONE (13:55)
[2020-03-20] MEDS ORDERED: ONDANSETRON 2MG/ML, 2ML ONE (14:22)
[2020-03-20] MEDS ORDERED: FENTANYL PF 100 MCG/2ML ONE (14:37)
[2020-03-20] MEDS ORDERED: HYDROmorphone 2 MG/ML, 1ML IVPush PRN (15:30)
[2020-03-20] MEDS ORDERED: ONDANSETRON ODT 8 MG PO PRN (15:30)
[2020-03-20] MEDS ORDERED: ONDANSETRON 2MG/ML, 2ML IV PRN (15:30)
[2020-03-20] MEDS ORDERED: DIAZEPAM 5 MG/ML, 2ML IVPush PRN (15:30)
[2020-03-20] MEDS ORDERED: ACETAMINOPHEN 325 MG TABLET PO PRN (15:30)
[2020-03-20] MEDS ORDERED: FENTANYL PF 100 MCG/2ML IV PRN (15:30)
[2020-03-20] MEDS ORDERED: LABETALOL 5MG/ML, 20ML IV PRN (15:30)
[2020-03-20] MEDS ORDERED: ALBUTEROL SULFATE 2.5 MG/3 ML NPPB PRN (15:30)
[2020-03-20] MEDS ORDERED: HALOPERIDOL 5 MG/ML IV PRN (15:30)
[2020-03-20] MEDS ORDERED: hydrALAzine 20 MG/ML, 1ML IV PRN (15:30)
[2020-03-20] MEDS ORDERED: MEPERIDINE/PF 25MG/ML,1ML IVPush PRN (15:30)
[2020-03-20] MEDS ORDERED: MIDAZOLAM 1 MG/ML, 2ML IV PRN (15:30)
[2020-03-20] MEDS ORDERED: OXYcodone 5 MG/5 ML ORAL.SOL UDC PO PRN (15:30)
[2020-03-20] MEDS ORDERED: EPHEDRINE 50 MG/ML, 1ML IVPush PRN (15:30)
[2020-03-20] MEDS ORDERED: PROMETHAZINE 25 MG/ML, 1ML IV PRN (15:30)
[2020-03-20] MEDS ORDERED: PROMETHAZINE 12.5 MG SUPP PR PRN (15:30)
[2020-03-20] MEDS ORDERED: OXYcodone 5 MG/5 ML ORAL.SOL UDC ONE (15:45)
[2020-03-20 16:47] VITALS: BP 139/70
[2020-03-20 19:09] VITALS: BP_SYST 122; BP_SYST 143; BP_DIAS 70; BP_DIAS 80
[2020-03-20] MEDS: ACETAMINOPHEN 325 MG TABLET PO PRN (19:36)
[2020-03-20] MEDS: INSULIN GLARGINE 100 UNITS/ML, PEN SQ-INSULIN SCH (20:46)
[2020-03-20 23:59] VITALS: BP 99/62
[2020-03-21 03:32] VITALS: BP 100/63
[2020-03-21 05:18] LABS: BASOPHILS # (AUTO) 0.06 x10^3/uL (0-0.1); BASOPHILS % (AUTO) 1 % (0-1); EOSINOPHILS % (AUTO) 5 % (1-7); LYMPHOCYTES % (AUTO) 18 % (22-44); MD NO; MEAN CORPUSCULAR HEMOGLOBIN 31.6 pg (27.5-34.5); MEAN CORPUSCULAR VOLUME 92.9 fL (81-97); MEAN PLATELET VOLUME 9.6 fL (7.4-10.4); MONOCYTES # (AUTO) 0.88 x10^3/uL (0.2-0.8); MONOCYTES % (AUTO) 9 % (2-9); NEUTROPHILS # (AUTO) 6.52 x10^3/uL (1.8-6.8); NEUTROPHILS % (AUTO) 67 % (42-75); PLATELET COUNT 281 x10^3/uL (130-400); RED BLOOD COUNT 4.06 x10^6/uL (4.38-5.82); RED CELL DISTRIBUTION WIDTH 13.2 % (9.4-14.8)
[2020-03-21 05:26] LABS: ALANINE AMINOTRANSFERASE 27 U/L (12-78); ALBUMIN 2.6 g/dL (3.4-5.0); ANION GAP 4 mmol/L (5-15); CALCIUM 9.1 mg/dL (8.5-10.1); CHLORIDE 106 mmol/L (98-107)
[2020-03-21 05:28] LABS: ALKALINE PHOSPHATASE 93 U/L (45-117); BILIRUBIN,TOTAL 0.5 mg/dL (0.2-1.0); CREATININE 0.73 mg/dL (0.7-1.3); TOTAL PROTEIN 7.7 g/dL (6.4-8.2)
[2020-03-21] MEDS: ACETAMINOPHEN 325 MG TABLET PO PRN ×2 (06:14→13:28)
[2020-03-21] MEDS: INSULIN LISPRO 100 UNITS/ML, PEN SQ-INSULIN SCH ×4 (07:00→21:35)
[2020-03-21 07:20] VITALS: BP 122/76
[2020-03-21] MEDS: MULTIVITAMIN 1 TABLET PO SCH (08:39)
[2020-03-21] MEDS: GABAPENTIN 300 MG CAPSULE PO SCH ×3 (08:39→21:28)
[2020-03-21] MEDS: SENNA/DOCUSATE TABLET PO SCH ×2 (08:39→21:28)
[2020-03-21] MEDS: metFORMIN 500 MG TABLET PO SCH ×2 (08:39→16:31)
[2020-03-21] MEDS: SODIUM CHLORIDE FLUSH 10ML SYR IVF SCH ×2 (09:57→21:28)
[2020-03-21 14:11] VITALS: BP 111/70
[2020-03-21 19:04] VITALS: BP 120/73
[2020-03-21] MEDS: OXYcodone IR 5MG TABLET PO PRN (21:28)
[2020-03-21] MEDS: INSULIN GLARGINE 100 UNITS/ML, PEN SQ-INSULIN SCH (21:35)
[2020-03-22 02:40] VITALS: BP 120/76
[2020-03-22] MEDS: INSULIN LISPRO 100 UNITS/ML, PEN SQ-INSULIN SCH ×4 (06:02→21:30)
[2020-03-22] MEDS: ACETAMINOPHEN 325 MG TABLET PO PRN ×3 (06:02→18:58)
[2020-03-22 07:00] VITALS: BP 117/73
[2020-03-22] MEDS: SENNA/DOCUSATE TABLET PO SCH ×2 (09:37→21:28)
[2020-03-22] MEDS: MULTIVITAMIN 1 TABLET PO SCH (09:37)
[2020-03-22] MEDS: GABAPENTIN 300 MG CAPSULE PO SCH ×3 (09:37→21:28)
[2020-03-22] MEDS: metFORMIN 500 MG TABLET PO SCH ×2 (09:38→16:40)
[2020-03-22] MEDS: SODIUM CHLORIDE FLUSH 10ML SYR IVF SCH ×2 (09:39→21:28)
[2020-03-22 13:00] VITALS: BP 132/71
[2020-03-22 18:38] VITALS: BP 121/71
[2020-03-22] MEDS: OXYcodone IR 5MG TABLET PO PRN (21:29)
[2020-03-22] MEDS: INSULIN GLARGINE 100 UNITS/ML, PEN SQ-INSULIN SCH (21:30)
[2020-03-22] MEDS: POLYETHYLENE GLYCOL 17 GM PACKET PO PRN (21:45)
[2020-03-23 01:00] VITALS: BP 125/75
[2020-03-23 06:16] LABS: BASOPHILS # (AUTO) 0.05 x10^3/uL (0-0.1); BASOPHILS % (AUTO) 1 % (0-1); EOSINOPHILS % (AUTO) 5 % (1-7); LYMPHOCYTES # (AUTO) 2.14 x10^3/uL (1-3.4); LYMPHOCYTES % (AUTO) 23 % (22-44); MD NO; MEAN CORPUSCULAR HEMOGLOBIN 31.3 pg (27.5-34.5); MEAN CORPUSCULAR HGB CONC 33.6 g/dL (33.2-36.2); MEAN CORPUSCULAR VOLUME 93.4 fL (81-97); MEAN PLATELET VOLUME 9.9 fL (7.4-10.4); MONOCYTES # (AUTO) 0.69 x10^3/uL (0.2-0.8); MONOCYTES % (AUTO) 7 % (2-9); NEUTROPHILS % (AUTO) 64 % (42-75); PLATELET COUNT 300 x10^3/uL (130-400); RED BLOOD COUNT 4.25 x10^6/uL (4.38-5.82); RED CELL DISTRIBUTION WIDTH 12.8 % (9.4-14.8)
[2020-03-23 06:25] LABS: ANION GAP 5 mmol/L (5-15); CALCIUM 9.1 mg/dL (8.5-10.1); CHLORIDE 108 mmol/L (98-107)
[2020-03-23 06:26] LABS: CREATININE 0.71 mg/dL (0.7-1.3)
[2020-03-23 06:42] VITALS: BP 114/67
[2020-03-23] MEDS: INSULIN LISPRO 100 UNITS/ML, PEN SQ-INSULIN SCH ×4 (06:44→21:00)
[2020-03-23] MEDS: SENNA/DOCUSATE TABLET PO SCH ×2 (08:01→21:57)
[2020-03-23] MEDS: metFORMIN 500 MG TABLET PO SCH ×2 (08:01→16:11)
[2020-03-23] MEDS: MULTIVITAMIN 1 TABLET PO SCH (08:01)
[2020-03-23] MEDS: GABAPENTIN 300 MG CAPSULE PO SCH ×3 (08:01→21:57)
[2020-03-23] MEDS: SODIUM CHLORIDE FLUSH 10ML SYR IVF SCH ×2 (08:01→21:58)
[2020-03-23 13:24] VITALS: BP 119/68
[2020-03-23 20:12] VITALS: BP 123/91
[2020-03-23] MEDS: ACETAMINOPHEN 325 MG TABLET PO PRN (21:57)
[2020-03-23] MEDS: INSULIN GLARGINE 100 UNITS/ML, PEN SQ-INSULIN SCH (21:57)
[2020-03-24 01:26] VITALS: BP 117/71
[2020-03-24] MEDS: ACETAMINOPHEN 325 MG TABLET PO PRN ×2 (03:51→21:37)
[2020-03-24 06:09] LABS: ANION GAP 6 mmol/L (5-15); CALCIUM 9.1 mg/dL (8.5-10.1); CHLORIDE 106 mmol/L (98-107)
[2020-03-24 06:12] LABS: CREATININE 0.88 mg/dL (0.7-1.3)
[2020-03-24] MEDS: INSULIN LISPRO 100 UNITS/ML, PEN SQ-INSULIN SCH ×4 (06:13→21:37)
[2020-03-24 06:26] LABS: BASOPHILS # (AUTO) 0.04 x10^3/uL (0-0.1); BASOPHILS % (AUTO) 0 % (0-1); EOSINOPHILS # (AUTO) 0.42 x10^3/uL (0-0.4); EOSINOPHILS % (AUTO) 3 % (1-7); LYMPHOCYTES # (AUTO) 2.27 x10^3/uL (1-3.4); LYMPHOCYTES % (AUTO) 18 % (22-44); MD NO; MEAN CORPUSCULAR HGB CONC 33.4 g/dL (33.2-36.2); MEAN PLATELET VOLUME 9.7 fL (7.4-10.4); MONOCYTES % (AUTO) 8 % (2-9); NEUTROPHILS # (AUTO) 9.01 x10^3/uL (1.8-6.8); NEUTROPHILS % (AUTO) 71 % (42-75); PLATELET COUNT 315 x10^3/uL (130-400); RED BLOOD COUNT 4.34 x10^6/uL (4.38-5.82); RED CELL DISTRIBUTION WIDTH 12.9 % (9.4-14.8)
[2020-03-24 07:23] VITALS: BP 116/67
[2020-03-24] MEDS: metFORMIN 500 MG TABLET PO SCH ×2 (08:24→15:54)
[2020-03-24] MEDS: GABAPENTIN 300 MG CAPSULE PO SCH ×3 (08:24→21:37)
[2020-03-24] MEDS: SENNA/DOCUSATE TABLET PO SCH ×2 (08:25→21:37)
[2020-03-24] MEDS: MULTIVITAMIN 1 TABLET PO SCH (08:25)
[2020-03-24] MEDS: SODIUM CHLORIDE FLUSH 10ML SYR IVF SCH ×2 (08:25→21:38)
[2020-03-24] MEDS: AQUAPHOR NATURAL HEALING OINT 50GM TP SCH ×2 (11:27→21:38)
[2020-03-24 13:24] VITALS: BP 122/75
[2020-03-24 20:45] VITALS: BP 113/67
[2020-03-24] MEDS: INSULIN GLARGINE 100 UNITS/ML, PEN SQ-INSULIN SCH (21:38)
[2020-03-25 02:32] VITALS: BP 116/73
[2020-03-25] MEDS: AQUAPHOR NATURAL HEALING OINT 50GM TP SCH ×3 (05:27→22:05)
[2020-03-25 05:31] LABS: BASOPHILS # (AUTO) 0.07 x10^3/uL (0-0.1); BASOPHILS % (AUTO) 1 % (0-1); EOSINOPHILS # (AUTO) 0.61 x10^3/uL (0-0.4); EOSINOPHILS % (AUTO) 5 % (1-7); LYMPHOCYTES # (AUTO) 1.86 x10^3/uL (1-3.4); LYMPHOCYTES % (AUTO) 16 % (22-44); MD NO; MEAN CORPUSCULAR HEMOGLOBIN 31.1 pg (27.5-34.5); MEAN CORPUSCULAR HGB CONC 33.8 g/dL (33.2-36.2); MEAN PLATELET VOLUME 10.2 fL (7.4-10.4); MONOCYTES # (AUTO) 0.92 x10^3/uL (0.2-0.8); MONOCYTES % (AUTO) 8 % (2-9); NEUTROPHILS % (AUTO) 71 % (42-75); PLATELET COUNT 298 x10^3/uL (130-400); RED BLOOD COUNT 4.28 x10^6/uL (4.38-5.82)
[2020-03-25 05:43] LABS: ANION GAP 6 mmol/L (5-15); CHLORIDE 106 mmol/L (98-107)
[2020-03-25 05:44] LABS: CREATININE 0.87 mg/dL (0.7-1.3)
[2020-03-25] MEDS: INSULIN LISPRO 100 UNITS/ML, PEN SQ-INSULIN SCH ×4 (07:00→21:28)
[2020-03-25 07:23] VITALS: BP 110/72
[2020-03-25] MEDS: metFORMIN 500 MG TABLET PO SCH ×2 (08:52→16:20)
[2020-03-25] MEDS: SODIUM CHLORIDE FLUSH 10ML SYR IVF SCH ×2 (08:52→21:27)
[2020-03-25] MEDS: SENNA/DOCUSATE TABLET PO SCH ×2 (08:52→21:26)
[2020-03-25] MEDS: MULTIVITAMIN 1 TABLET PO SCH (08:52)
[2020-03-25] MEDS: GABAPENTIN 300 MG CAPSULE PO SCH ×3 (08:52→21:26)
[2020-03-25] MEDS: ACETAMINOPHEN 325 MG TABLET PO PRN ×2 (08:59→21:26)
[2020-03-25 13:47] VITALS: BP 127/76
[2020-03-25 19:16] VITALS: BP 127/74
[2020-03-25] MEDS: INSULIN GLARGINE 100 UNITS/ML, PEN SQ-INSULIN SCH (21:29)
[2020-03-26 00:45] VITALS: BP 119/72
[2020-03-26] MEDS: ACETAMINOPHEN 325 MG TABLET PO PRN ×2 (04:43→21:54)
[2020-03-26 05:17] LABS: CREATININE 0.93 mg/dL (0.7-1.3)
[2020-03-26] MEDS: AQUAPHOR NATURAL HEALING OINT 50GM TP SCH ×3 (06:15→21:57)
[2020-03-26 06:59] VITALS: BP 120/70
[2020-03-26] MEDS: INSULIN LISPRO 100 UNITS/ML, PEN SQ-INSULIN SCH ×4 (07:00→21:56)
[2020-03-26] MEDS: SENNA/DOCUSATE TABLET PO SCH ×2 (08:24→21:54)
[2020-03-26] MEDS: GABAPENTIN 300 MG CAPSULE PO SCH ×3 (08:24→21:54)
[2020-03-26] MEDS: MULTIVITAMIN 1 TABLET PO SCH (08:24)
[2020-03-26] MEDS: metFORMIN 500 MG TABLET PO SCH ×2 (08:24→16:24)
[2020-03-26] MEDS: SODIUM CHLORIDE FLUSH 10ML SYR IVF SCH ×2 (08:24→21:56)
[2020-03-26 12:33] VITALS: BP 129/74
[2020-03-26 18:44] VITALS: BP 121/71
[2020-03-26] MEDS: INSULIN GLARGINE 100 UNITS/ML, PEN SQ-INSULIN SCH (21:56)
[2020-03-27 03:11] VITALS: BP 117/71
[2020-03-27] MEDS: AQUAPHOR NATURAL HEALING OINT 50GM TP SCH ×3 (06:08→22:12)
[2020-03-27] MEDS: INSULIN LISPRO 100 UNITS/ML, PEN SQ-INSULIN SCH ×4 (07:00→22:11)
[2020-03-27 07:13] VITALS: BP 127/74
[2020-03-27] MEDS: SENNA/DOCUSATE TABLET PO SCH ×2 (08:02→22:06)
[2020-03-27] MEDS: SODIUM CHLORIDE FLUSH 10ML SYR IVF SCH ×2 (08:02→22:07)
[2020-03-27] MEDS: GABAPENTIN 300 MG CAPSULE PO SCH ×3 (08:02→22:06)
[2020-03-27] MEDS: MULTIVITAMIN 1 TABLET PO SCH (08:02)
[2020-03-27] MEDS: metFORMIN 500 MG TABLET PO SCH ×2 (08:02→16:56)
[2020-03-27 13:48] VITALS: BP 136/89
[2020-03-27 13:49] VITALS: BP 117/75
[2020-03-27 19:44] VITALS: BP 121/72
[2020-03-27] MEDS: INSULIN GLARGINE 100 UNITS/ML, PEN SQ-INSULIN SCH (22:12)
[2020-03-28 00:35] VITALS: BP 116/69
[2020-03-28 05:49] LABS: BASOPHILS # (AUTO) 0.04 x10^3/uL (0-0.1); BASOPHILS % (AUTO) 0 % (0-1); EOSINOPHILS # (AUTO) 0.37 x10^3/uL (0-0.4); EOSINOPHILS % (AUTO) 4 % (1-7); LYMPHOCYTES # (AUTO) 1.56 x10^3/uL (1-3.4); LYMPHOCYTES % (AUTO) 15 % (22-44); MD NO; MEAN CORPUSCULAR HEMOGLOBIN 31.2 pg (27.5-34.5); MEAN CORPUSCULAR HGB CONC 33.7 g/dL (33.2-36.2); MEAN CORPUSCULAR VOLUME 92.5 fL (81-97); MEAN PLATELET VOLUME 9.6 fL (7.4-10.4); MONOCYTES # (AUTO) 0.56 x10^3/uL (0.2-0.8); MONOCYTES % (AUTO) 5 % (2-9); NEUTROPHILS # (AUTO) 7.76 x10^3/uL (1.8-6.8); NEUTROPHILS % (AUTO) 75 % (42-75); PLATELET COUNT 307 x10^3/uL (130-400); RED BLOOD COUNT 4.17 x10^6/uL (4.38-5.82); RED CELL DISTRIBUTION WIDTH 12.8 % (9.4-14.8)
[2020-03-28 05:54] LABS: ANION GAP 6 mmol/L (5-15); CALCIUM 9.1 mg/dL (8.5-10.1); CHLORIDE 108 mmol/L (98-107)
[2020-03-28 05:56] LABS: CREATININE 0.86 mg/dL (0.7-1.3)
[2020-03-28] MEDS: AQUAPHOR NATURAL HEALING OINT 50GM TP SCH ×3 (06:11→21:24)
[2020-03-28 06:54] VITALS: BP 110/73
[2020-03-28] MEDS: INSULIN LISPRO 100 UNITS/ML, PEN SQ-INSULIN SCH ×4 (07:47→21:00)
[2020-03-28] MEDS: metFORMIN 500 MG TABLET PO SCH ×2 (08:01→16:37)
[2020-03-28] MEDS: GABAPENTIN 300 MG CAPSULE PO SCH ×3 (08:01→21:24)
[2020-03-28] MEDS: SENNA/DOCUSATE TABLET PO SCH ×2 (08:01→21:24)
[2020-03-28] MEDS: SODIUM CHLORIDE FLUSH 10ML SYR IVF SCH ×2 (08:01→21:24)
[2020-03-28] MEDS: MULTIVITAMIN 1 TABLET PO SCH (08:01)
[2020-03-28 13:46] VITALS: BP 113/74
[2020-03-28 19:47] VITALS: BP 112/71
[2020-03-28] MEDS: INSULIN GLARGINE 100 UNITS/ML, PEN SQ-INSULIN SCH (21:24)
[2020-03-29 02:01] VITALS: BP 106/66
[2020-03-29 06:08] LABS: CREATININE 0.78 mg/dL (0.7-1.3)
[2020-03-29] MEDS: AQUAPHOR NATURAL HEALING OINT 50GM TP SCH ×3 (06:24→21:44)
[2020-03-29 06:59] VITALS: BP 106/66
[2020-03-29] MEDS: metFORMIN 500 MG TABLET PO SCH ×2 (07:51→16:22)
[2020-03-29] MEDS: SENNA/DOCUSATE TABLET PO SCH ×2 (07:51→21:44)
[2020-03-29] MEDS: GABAPENTIN 300 MG CAPSULE PO SCH ×3 (07:51→21:44)
[2020-03-29] MEDS: MULTIVITAMIN 1 TABLET PO SCH (07:51)
[2020-03-29] MEDS: INSULIN LISPRO 100 UNITS/ML, PEN SQ-INSULIN SCH ×4 (07:52→21:43)
[2020-03-29] MEDS: SODIUM CHLORIDE FLUSH 10ML SYR IVF SCH ×2 (07:52→21:00)
[2020-03-29 13:58] VITALS: BP 110/70
[2020-03-29 19:55] VITALS: BP 117/71
[2020-03-29] MEDS: INSULIN GLARGINE 100 UNITS/ML, PEN SQ-INSULIN SCH (21:43)
[2020-03-30 01:24] VITALS: BP 105/67
[2020-03-30 05:10] LABS: BASOPHILS # (AUTO) 0.07 x10^3/uL (0-0.1); BASOPHILS % (AUTO) 1 % (0-1); EOSINOPHILS # (AUTO) 0.42 x10^3/uL (0-0.4); EOSINOPHILS % (AUTO) 4 % (1-7); LYMPHOCYTES # (AUTO) 1.77 x10^3/uL (1-3.4); LYMPHOCYTES % (AUTO) 17 % (22-44); MD NO; MEAN CORPUSCULAR HEMOGLOBIN 30.9 pg (27.5-34.5); MEAN CORPUSCULAR HGB CONC 33.7 g/dL (33.2-36.2); MEAN CORPUSCULAR VOLUME 91.6 fL (81-97); MEAN PLATELET VOLUME 9.6 fL (7.4-10.4); MONOCYTES # (AUTO) 0.65 x10^3/uL (0.2-0.8); MONOCYTES % (AUTO) 6 % (2-9); NEUTROPHILS % (AUTO) 72 % (42-75); PLATELET COUNT 301 x10^3/uL (130-400); RED BLOOD COUNT 4.22 x10^6/uL (4.38-5.82)
[2020-03-30 05:13] LABS: ANION GAP 8 mmol/L (5-15); CALCIUM 8.6 mg/dL (8.5-10.1); CHLORIDE 108 mmol/L (98-107); CREATININE 0.77 mg/dL (0.7-1.3)
[2020-03-30] MEDS: AQUAPHOR NATURAL HEALING OINT 50GM TP SCH ×3 (06:00→20:52)
[2020-03-30] MEDS: INSULIN LISPRO 100 UNITS/ML, PEN SQ-INSULIN SCH ×4 (06:34→20:52)
[2020-03-30 07:25] VITALS: BP 117/72
[2020-03-30] MEDS: GABAPENTIN 300 MG CAPSULE PO SCH ×3 (07:50→20:52)
[2020-03-30] MEDS: SENNA/DOCUSATE TABLET PO SCH ×2 (07:50→20:52)
[2020-03-30] MEDS: metFORMIN 500 MG TABLET PO SCH ×2 (07:50→17:17)
[2020-03-30] MEDS: MULTIVITAMIN 1 TABLET PO SCH (07:50)
[2020-03-30] MEDS: SODIUM CHLORIDE FLUSH 10ML SYR IVF SCH ×2 (07:51→20:52)
[2020-03-30] MEDS: DIPHENHYDRAMINE 25 MG CAPSULE PO PRN ×2 (11:02→20:52)
[2020-03-30 13:13] VITALS: BP 117/71
[2020-03-30 19:33] VITALS: BP 115/72
[2020-03-30] MEDS: INSULIN GLARGINE 100 UNITS/ML, PEN SQ-INSULIN SCH (20:51)
[2020-03-31 00:57] VITALS: BP 109/63
[2020-03-31 05:17] LABS: BASOPHILS # (AUTO) 0.02 x10^3/uL (0-0.1); BASOPHILS % (AUTO) 0 % (0-1); EOSINOPHILS # (AUTO) 0.33 x10^3/uL (0-0.4); EOSINOPHILS % (AUTO) 3 % (1-7); LYMPHOCYTES # (AUTO) 1.98 x10^3/uL (1-3.4); LYMPHOCYTES % (AUTO) 20 % (22-44); MD NO; MEAN CORPUSCULAR HEMOGLOBIN 31.2 pg (27.5-34.5); MEAN CORPUSCULAR VOLUME 91.9 fL (81-97); MEAN PLATELET VOLUME 9.4 fL (7.4-10.4); MONOCYTES # (AUTO) 0.72 x10^3/uL (0.2-0.8); MONOCYTES % (AUTO) 7 % (2-9); NEUTROPHILS # (AUTO) 6.72 x10^3/uL (1.8-6.8); NEUTROPHILS % (AUTO) 69 % (42-75); PLATELET COUNT 300 x10^3/uL (130-400); RED BLOOD COUNT 3.96 x10^6/uL (4.38-5.82); RED CELL DISTRIBUTION WIDTH 12.7 % (9.4-14.8)
[2020-03-31 05:26] LABS: ANION GAP 6 mmol/L (5-15); CALCIUM 8.5 mg/dL (8.5-10.1); CHLORIDE 108 mmol/L (98-107); CREATININE 0.82 mg/dL (0.7-1.3)
[2020-03-31] MEDS: AQUAPHOR NATURAL HEALING OINT 50GM TP SCH ×3 (06:00→21:40)
[2020-03-31] MEDS: INSULIN LISPRO 100 UNITS/ML, PEN SQ-INSULIN SCH ×4 (06:30→21:36)
[2020-03-31 06:38] VITALS: BP 118/71
[2020-03-31] MEDS: SENNA/DOCUSATE TABLET PO SCH ×2 (08:00→21:36)
[2020-03-31] MEDS: GABAPENTIN 300 MG CAPSULE PO SCH ×3 (08:00→21:36)
[2020-03-31] MEDS: MULTIVITAMIN 1 TABLET PO SCH (08:00)
[2020-03-31] MEDS: metFORMIN 500 MG TABLET PO SCH ×2 (08:00→16:47)
[2020-03-31] MEDS: SODIUM CHLORIDE FLUSH 10ML SYR IVF SCH ×2 (08:00→21:00)
[2020-03-31] MEDS ORDERED: NYSTATIN CRM 15GM TP PRN (10:30)
[2020-03-31 13:17] VITALS: BP 126/80
[2020-03-31] MEDS: DIPHENHYDRAMINE 25 MG CAPSULE PO PRN (16:47)
[2020-03-31 19:11] VITALS: BP 104/56
[2020-03-31] MEDS: INSULIN GLARGINE 100 UNITS/ML, PEN SQ-INSULIN SCH (21:36)
[2020-04-01 00:58] VITALS: BP 109/75
[2020-04-01 04:52] LABS: BASOPHILS # (AUTO) 0.03 x10^3/uL (0-0.1); BASOPHILS % (AUTO) 0 % (0-1); EOSINOPHILS # (AUTO) 0.27 x10^3/uL (0-0.4); EOSINOPHILS % (AUTO) 3 % (1-7); LYMPHOCYTES # (AUTO) 1.57 x10^3/uL (1-3.4); LYMPHOCYTES % (AUTO) 15 % (22-44); MD NO; MEAN CORPUSCULAR HEMOGLOBIN 30.9 pg (27.5-34.5); MEAN CORPUSCULAR HGB CONC 33.8 g/dL (33.2-36.2); MEAN CORPUSCULAR VOLUME 91.5 fL (81-97); MEAN PLATELET VOLUME 9.8 fL (7.4-10.4); MONOCYTES # (AUTO) 0.68 x10^3/uL (0.2-0.8); MONOCYTES % (AUTO) 6 % (2-9); NEUTROPHILS # (AUTO) 8.15 x10^3/uL (1.8-6.8); NEUTROPHILS % (AUTO) 76 % (42-75); PLATELET COUNT 311 x10^3/uL (130-400); RED BLOOD COUNT 4.19 x10^6/uL (4.38-5.82); RED CELL DISTRIBUTION WIDTH 12.6 % (9.4-14.8)
[2020-04-01 04:56] LABS: ALANINE AMINOTRANSFERASE 29 U/L (12-78); ALBUMIN 2.5 g/dL (3.4-5.0); ANION GAP 6 mmol/L (5-15); CALCIUM 8.6 mg/dL (8.5-10.1); CHLORIDE 108 mmol/L (98-107)
[2020-04-01 04:58] LABS: ALKALINE PHOSPHATASE 96 U/L (45-117); BILIRUBIN,TOTAL 0.4 mg/dL (0.2-1.0); TOTAL PROTEIN 7.9 g/dL (6.4-8.2)
[2020-04-01] MEDS: AQUAPHOR NATURAL HEALING OINT 50GM TP SCH ×2 (06:00→11:57)
[2020-04-01] MEDS: INSULIN LISPRO 100 UNITS/ML, PEN SQ-INSULIN SCH ×3 (06:07→15:57)
[2020-04-01] MEDS: GABAPENTIN 300 MG CAPSULE PO SCH ×2 (08:15→15:56)
[2020-04-01] MEDS: metFORMIN 500 MG TABLET PO SCH ×2 (08:16→15:56)
[2020-04-01] MEDS: MULTIVITAMIN 1 TABLET PO SCH (08:16)
[2020-04-01] MEDS: SODIUM CHLORIDE FLUSH 10ML SYR IVF SCH (09:00)
[2020-04-01 09:13] VITALS: BP 112/70
[2020-04-01] MEDS ORDERED: DIPH25CA26 PO (09:22)
[2020-04-01] MEDS ORDERED: METF1000 PO (09:22)
[2020-04-01] MEDS ORDERED: INSU100I13 SQ-INSULIN (09:22)
[2020-04-01] MEDS ORDERED: GABA300C10 PO (09:22)
[2020-04-01] MEDS ORDERED: MULT-449 PO (09:22)
[2020-04-01 15:00] VITALS: BP 123/77
[2020-04-01] MEDS: POLYETHYLENE GLYCOL 17 GM PACKET PO PRN (15:41)
[2020-04-01] MEDS: OXYcodone IR 5MG TABLET PO PRN (15:41)
[2020-04-01] MEDS: SENNA/DOCUSATE TABLET PO SCH (15:41)
[2020-04-01 15:42] VITALS: BP 127/77
== END 2020-04-01 16:03 | disposition home or self-care (01) | DRG 710 ==
LOC: ED 19:02 → EDIP 19:28 → CCU 21:36 → ICU 01-25 17:31 → 4NE 01-26 15:04
PROVIDERS: ADMIT Hospitalist; ATTEND Family Medicine
PROC: 0T9B80Z Drainage of Bladder with Drainage Device, Via Natural or Artificial Opening Endoscopic (ICD-10-PCS; 2020-01-24)
PROC: 0KBP0ZZ Excision of Left Hip Muscle, Open Approach (ICD-10-PCS; 2020-01-24)
PROC: 0TJB8ZZ Inspection of Bladder, Via Natural or Artificial Opening Endoscopic (ICD-10-PCS; 2020-01-24)
PROC: 0VB50ZZ Excision of Scrotum, Open Approach (ICD-10-PCS; principal; 2020-01-24 19:30)
PROC: 0JBB0ZZ Excision of Perineum Subcutaneous Tissue and Fascia, Open Approach (ICD-10-PCS; 2020-01-25)
PROC: 0D1N4Z4 Bypass Sigmoid Colon to Cutaneous, Percutaneous Endoscopic Approach (ICD-10-PCS; 2020-01-27)
PROC: 0JBB0ZZ Excision of Perineum Subcutaneous Tissue and Fascia, Open Approach (ICD-10-PCS; 2020-01-27)
PROC: 02HV33Z Insertion of Infusion Device into Superior Vena Cava, Percutaneous Approach (ICD-10-PCS; 2020-02-01)
PROC: B5181ZA Fluoroscopy of Superior Vena Cava using Low Osmolar Contrast, Guidance (ICD-10-PCS; 2020-02-01)
PROC: B548ZZA Ultrasonography of Superior Vena Cava, Guidance (ICD-10-PCS; 2020-02-01)
PROC: 0JDB0ZZ Extraction of Perineum Subcutaneous Tissue and Fascia, Open Approach (ICD-10-PCS; 2020-02-02)
PROC: 0HR8X74 Replacement of Buttock Skin with Autologous Tissue Substitute, Partial Thickness, External Approach (ICD-10-PCS; 2020-03-20)
PROC: 0HBJXZZ Excision of Left Upper Leg Skin, External Approach (ICD-10-PCS; 2020-03-20)
DX: A41.9 Sepsis, unspecified organism (principal); M72.6 Necrotizing fasciitis; E43 Unspecified severe protein-calorie malnutrition; E87.2 Acidosis; E11.65 Type 2 diabetes mellitus with hyperglycemia; D63.8 Anemia in other chronic diseases classified elsewhere; E66.9 Obesity, unspecified; E83.51 Hypocalcemia; E87.1 Hypo-osmolality and hyponatremia; E87.6 Hypokalemia; F17.210 Nicotine dependence, cigarettes, uncomplicated; I95.1 Orthostatic hypotension; N49.3 Fournier gangrene; N17.9 Acute kidney failure, unspecified; N50.89 Other specified disorders of the male genital organs; R65.20 Severe sepsis without septic shock; W19.XXXA Unspecified fall, initial encounter; Z83.3 Family history of diabetes mellitus; Z93.3 Colostomy status; Z68.24 Body mass index [BMI] 24.0-24.9, adult; E83.52 Hypercalcemia; E87.0 Hyperosmolality and hypernatremia; I80.8 Phlebitis and thrombophlebitis of other sites; K59.00 Constipation, unspecified; Z79.4 Long term (current) use of insulin
CPT/HCPCS: 36415; 36573; 72193; 80048; 80053; 80061; 80076; 80202; 81001; 82040; 82330; 82565; 82962; 83036; 83540; 83550; 83605; 83735; 84100; 84134; 84145; 85025; 85610; 85651; 86140; 87040; 87070; 87075; 87076; 87081; 87147; 87205; 88305; 97162; G0378; J0171; J0295; J0690; J1100; J1170; J1644; J1650; J2185; J2250; J2405; J2704; J2710; J3010; J3370; J3480; Q9967; C1751; J0330; J1815; J2270; J3490; J7030; J7040; J7050; Q0163